=== PATIENT | female | born 1985 | race Caucasian/White ===

== ENCOUNTER 2017-07-30 20:58 | Emergency (ER) | payer BC ==
[2017-07-30 21:11] VITALS: BP 149/93
[2017-07-30] MEDS ORDERED: Pantoprazole 40 MG Tab.CR PO ONE (21:52)
--- NOTE | 2017-07-30 22:00 | EDM.PDOC ---
ED HPI GENERAL MEDICAL PROBLEM - General Chief Complaint: General Stated Complaint: BLOODY STOOLS RETAINING FLUID Time Seen by Provider: 07/30/17 21:32 Source of Information: Reports: Patient History Limitations: Reports: No Limitations - History of Present Illness INITIAL COMMENTS - FREE TEXT/NARRATIVE: Patient is a 32-year-old female presents ED with multiple complaints. The first being patient has gained approximately 15 pounds over the past 3 weeks. She states she quit smoking March 2017. For the past 3 weeks patient hasn't been increasing tired with decrease in appetite with bearing a best friend earlier the June and also having a friend coming to her with concerns of being alcoholic. Patient suffers from depression and was started on Effexor recently since he will be treated was not working. Patient lacks motivation to do anything that she previously enjoyed. Most hours of the day she is sleeping. She states previous thyroid tests have been negative although there is a family history of hypothyroidism. Patient admits to being depressed. In addition she's also been experiencing episodes of blood within her stools and wiping since March. She has a history of GI bleeds requiring EGD and colonoscopy. Has a recent she started on meloxicam and has been experiencing worsening acid reflux. She's had intermittent episodes of dark tarry stools. States today the blood was felipe red present within the water and also with wiping. She has no history of hemorrhoids or pain to her rectum. There's been no history of ingestion of battery questionable food or recent out of country travel. She also states she has not urinating as frequently as she would expect with the amount of fluids she is consuming. States she feels as if she is retaining fluids. She does not have the urge to urinate. There is a family hx of kidney disease. lower back Pain Score (Numeric/FACES): 4 - Related Data Allergies Allergy/AdvReac Type Severity Reaction Status Date / Time amoxicillin [Amoxicillin] Allergy Rash Verified 07/30/17 21:11 ciprofloxacin [From Cipro] Allergy Anaphylactic Verified 07/30/17 21:11 Shock ciprofloxacin HCl Allergy Anaphylactic Verified 07/30/17 21:11 [From Cipro] Shock doxycycline Allergy Anaphylactic Verified 07/30/17 21:11 Shock fentanyl Allergy Itching Verified 07/30/17 21:11 Penicillins Allergy Rash Verified 07/30/17 21:11 shellfish derived Allergy Anaphylactic Verified 07/30/17 21:11 Shock Sulfa (Sulfonamide Allergy Anaphylactic Verified 07/30/17 21:11 Antibiotics) Shock aripiprazole [From Abilify] AdvReac Change Verified 07/30/17 21:11 Mental Status Home Meds: Home Meds Acyclovir [Zovirax] 200 mg PO ASDIRECTED 04/27/16 [History] Venlafaxine [Effexor XR] 150 mg PO DAILY 04/27/16 [History] ALPRAZolam [Alprazolam] 1 tab PO ASDIRECTED PRN 07/30/17 [History] Albuterol Sulfate [Proair Hfa] 8.5 gm IH ASDIRECTED PRN 07/30/17 [History] Meloxicam 15 mg PO ASDIRECTED PRN 07/30/17 [History] buPROPion [Wellbutrin] 75 mg PO DAILY 07/30/17 [History] Past Medical History HEENT History: Reports: Allergic Rhinitis Cardiovascular History: Reports: Other (See Below) Other Cardiovascular History: retaining fluid Respiratory History: Reports: Asthma Gastrointestinal History: Reports: Cholelithiasis, GERD, Hiatal Hernia, PUD Other Gastrointestinal History: states hx of GI bleeding Other Genitourinary History: kidney stones SEWER History: Reports: Endometriosis Other OB/BYN History: pelvic pain, bilateral mastodynia, breast lump Musculoskeletal History: Reports: Other (See Below) Other Musculoskeletal History: generalized pain Neurological History: Reports: Migraines Psychiatric History: Reports: Anxiety, Depression Endocrine/Metabolic History: Reports: Obesity/BMI 30+ Immunologic History: - Past Surgical History GI Surgical History: Reports: Cholecystectomy, Other (See Below) Female Surgical History: Reports: Section, Hysterectomy, Salpingo- Oophorectomy Social & Family History - Family History Family Medical History: Noncontributory Cardiac: Reports: Heart Failure : Reports: Renal Disease/Insufficiency, Other (See Below) Other Family History: grandmother with kidney failure Oncologic: Reports: Thyroid Other Oncologic Family History: first cousin - Tobacco Use Smoking Status *Q: Former Smoker Years of Tobacco use: 6 Packs/Tins Daily: 1 Used Tobacco, but Quit: Yes Month Tobacco Last Used: 03/29/2017 Second Hand Smoke Exposure: Yes - Caffeine Use Caffeine Use: Reports: None - Alcohol Use Days Per Week of Alcohol Use: 0 Number of Drinks Per Day: 0 Total Drinks Per Week: 0 - Recreational Drug Use Recreational Drug Use: No - Living Situation & Occupation Occupation: Employed ED ROS GENERAL - Review of Systems Review Of Systems: See Below Constitutional: Reports: Malaise, Decreased Appetite. Denies: Fever, Chills HEENT: Reports: No Symptoms Respiratory: Reports: No Symptoms Cardiovascular: Reports: No Symptoms GI/Abdominal: Reports: Abdominal Pain, Bloody Stool, Decreased Appetite, Melena. Denies: Diarrhea, Nausea, Vomiting : Reports: Urinary Retention. Denies: Discharge, Dysuria, Flank Pain, Frequency, Hematuria, Incontinence, Pain, Urgency Musculoskeletal: Reports: No Symptoms Neurological: Reports: No Symptoms Psychiatric: Reports: Depression. Denies: Hallucinations, Homicidal Ideation, Suicidal Ideation ED EXAM, GENERAL - Physical Exam Exam: See Below Exam Limited By: No Limitations General Appearance: Alert, WD/WN, No Apparent Distress Ears: Hearing Grossly Normal Nose: Normal Inspection Throat/Mouth: Normal Voice, No Airway Compromise Neck: Normal Inspection, Supple Respiratory/Chest: No Respiratory Distress, Lungs Clear, Normal Breath Sounds, No Accessory Muscle Use Cardiovascular: Normal Peripheral Pulses, Regular Rate, Rhythm, No Murmur GI/Abdominal: Normal Bowel Sounds, Soft, No Organomegaly, No Distention, Tender (mild tenderness to the suprapubic region ) Rectal (Female) Exam: Deferred Back Exam: Normal Inspection Neurological: Alert, Oriented, CN II-XII Intact, Normal Cognition, No Motor/ Sensory Deficits Psychiatric: Normal Affect, Normal Mood, Other (patient does not appear to be depressed. ) Skin Exam: Warm, Dry, Intact, Normal Color, No Rash Course - Vital Signs Last Recorded V/S: Last Vital Signs Temp 97.8 F 07/30/17 21:06 Pulse 87 07/30/17 21:06 Resp 18 07/30/17 21:06 BP 149/93 H 07/30/17 21:06 Pulse Ox 99 07/30/17 21:06 - Orders/Labs/Meds Labs: Laboratory Tests 07/30/17 07/30/17 07/30/17 Range/Units 22:03 22:03 22:18 WBC 7.14 (3.98-10.04) K/mm3 RBC 4.07 (3.98-5.22) M/mm3 Hgb 12.1 (11.2-15.7) gm/L Hct 37.7 (34.1-44.9) % MCV 92.6 (79.4-94.8) fl MCH 29.7 (25.6-32.2) pg MCHC 32.1 L (32.2-35.5) g/dl RDW Std Deviation 41.9 (36.4-46.3) fL Plt Count 317 (182-369) K/mm3 MPV 9.5 (9.4-12.3) fl Neut % (Auto) 49.3 (34.0-71.1) % Lymph % (Auto) 40.2 (19.3-51.7) % [place] % (Auto) 7.6 (4.7-12.5) % Eos % (Auto) 2.4 (0.7-5.8) Baso % (Auto) 0.4 (0.1-1.2) % Neut # (Auto) 3.52 (1.56-6.13) K/mm3 Lymph # (Auto) 2.87 (1.18-3.74) K/mm3 [place] # (Auto) 0.54 H (0.24-0.36) K/mm3 Eos # (Auto) 0.17 (0.04-0.36) K/mm3 Baso # (Auto) 0.03 (0.01-0.08) K/mm3 Sodium 141 (136-145) mEq/L Potassium 3.7 (3.5-5.1) mEq/L Chloride 105 (98-107) mEq/L Carbon Dioxide 29 (21-32) mEq/L Anion Gap 10.7 (5-15) BUN 13 (7-18) mg/dL Creatinine 0.8 (0.55-1.02) mg/dL Est Cr Clr Drug Dosing 98.18 mL/min Estimated GFR (MDRD) > 60 (>60) mL/min BUN/Creatinine Ratio 16.3 (14-18) Glucose 89 (74-106) mg/dL Calcium 9.0 (8.5-10.1) mg/dL Total Bilirubin 0.2 (0.2-1.0) mg/dL AST 21 (15-37) U/L ALT 36 (14-59) U/L Alkaline Phosphatase 48 (46-116) U/L Total Protein 7.5 (6.4-8.2) g/dl Albumin 3.5 (3.4-5.0) g/dl Globulin 4.0 gm/dL Albumin/Globulin Ratio 0.9 L (1-2) Lipase 140 (73-393) U/L TSH 3rd Generation 1.283 (0.358-3.74) uIU/mL Urine Color Yellow (Yellow) Urine Appearance Clear (Clear) Urine pH 6.0 (5.0-8.0) Ur Specific [place] 1.025 (1.005-1.030) Urine Protein Negative (Negative) Urine Glucose (UA) Negative (Negative) Urine Ketones Negative (Negative) Urine Occult Blood 3+ H (Negative) Urine Nitrite Negative (Negative) Urine Bilirubin Negative (Negative) Urine Urobilinogen 0.2 (0.2-1.0) Ur Leukocyte Esterase Negative (Negative) Urine RBC 30-40 H (0-5) /hpf Urine WBC 0-5 (0-5) /hpf Ur Epithelial Cells 0-5 (0-5) /hpf Urine Bacteria Few (FEW) /hpf Urine Mucus Few (FEW) /hpf Meds: Medications Discontinued Medications Generic Name Dose Route Start Last Admin Trade Name Freq PRN Reason Stop Dose Admin Pantoprazole Sodium 40 mg 07/31/17 21:52 Protonix PO 07/31/17 21:53 ONETIME ONE Pantoprazole Sodium 40 mg 07/30/17 21:52 07/30/17 22:17 Protonix PO 07/30/17 21:53 40 mg ONETIME ONE Administration - Re-Assessments/Exams Free Text/Narrative Re-Assessment/Exam: Ordered protonix 40mg PO. Initial labs ordered include: CBC, C14, Lipase, TSH, and UA. Labs reviewed CBC and chemistry panel were essentially normal. TSH 1.283. Lipase 1.40. UA positive for blood. Discussed results of the labs with patient. Will discharge patient home with instructions as documented. Departure - Departure Time of Disposition: 23:01 Disposition: Home, Self-Care 01 Condition: Good Clinical Impression: Bleeding per rectum Hematuria Qualifiers: Hematuria type: unspecified type Qualified Code(s): R31.9 - Hematuria, unspecified Depression Qualifiers: Depression Type: unspecified Qualified Code(s): F32.9 - Major depressive disorder, single episode, unspecified - Discharge Information Instructions: Gastrointestinal Bleeding, Hematuria, Adult Referrals: Deng Booker PA-C [Primary Care Provider] - [facility] [Outside] Apurva Kelley NP [Nurse Practitioner] - Zain Ambriz MD [Physician] - Forms: ED Department Discharge Additional Instructions: As discussed continue taking all home medications except for meloxicam as prescribed. Refrain from taking any nsaids with history of blood from rectum. Please see general surgeon for reevaluation. EGD and or colonscopy maybe required. Take protonix 40mg every a.m. until told not to by General Surgeon. IN addition blood was noted within the urine. Unclear significance at this point. Suggest following up with PCP to ensure this resolves and if not pursue further workup. Followup with PCP to discuss effectiveness of antidepressants. Cognitive behavior therapy may be of benefit thus seek evaluation at [facility] ,Dr. Ambriz, or Windy Kelley Return to the E.D. for any new or worsening symptoms.
[2017-07-31] MEDS ORDERED: Pantoprazole 40 MG Tab.CR PO ONE (21:52)
== END 2017-07-30 23:20 | disposition home or self-care (01) ==
LOC: JD.ED 20:58
DX: K62.5 Hemorrhage of anus and rectum (principal); F32.9 Major depressive disorder, single episode, unspecified; Z88.1 Allergy status to other antibiotic agents; Z88.2 Allergy status to sulfonamides; Z88.0 Allergy status to penicillin; Z91.013 Allergy to seafood; Z79.899 Other long term (current) drug therapy; Z87.891 Personal history of nicotine dependence
CPT/HCPCS: 36415; 51798; 80053; 81001; 83690; 84443; 85025; 99283; A9270

== ENCOUNTER 2019-05-17 13:13 | Emergency (ER) | payer BC ==
[2019-05-17 13:34] VITALS: BP 113/78; PULSE 100
[2019-05-17] MEDS ORDERED: Ondansetron 4 MG/2 ML SDV IVPUSH ONE (14:03)
[2019-05-17] MEDS ORDERED: HYDROmorphone 0.5 MG/0.5 ML Syringe IVPUSH ONE ×2 (14:03→15:37)
[2019-05-17] MEDS ORDERED: Sodium Chloride 0.9% 10 ML Syringe FLUSH PRN (14:03)
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
--- NOTE | 2019-05-17 15:36 | CT ---
CT facial bone Technique: Multiple axial sections through the facial bones were obtained. Comparison: No prior facial bone study. Findings: Mastoid sinuses and middle ear cavities are clear. No temporal bone fracture is appreciated. Paranasal sinuses show nothing acute. Right and left globes are symmetric. No facial bone fracture is seen. Impression: 1. Nothing acute is appreciated on CT study of the facial bones. Diagnostic code #1
--- NOTE | 2019-05-17 15:36 | CT ---
Head CT Technique: Multiple axial sections through the brain were obtained. Intravenous contrast was not utilized. Comparison: No prior intracranial imaging. Findings: Ventricles along with basal cisterns and sulci over the convexities are within normal limits for the patient's age. No abnormal parenchymal densities are seen. No evidence of intracranial hemorrhage. No midline shift or mass effect is seen. No acute calvarial abnormality is identified. Mastoid sinuses show nothing acute. Impression: 1. Nothing acute is appreciated on noncontrast head CT exam. Diagnostic code #1
== END 2019-05-17 16:31 | disposition home or self-care (01) ==
LOC: JD.ED 13:13
DX: S06.0X9A Concussion with loss of consciousness of unspecified duration, initial encounter (principal); H91.92 Unspecified hearing loss, left ear; J45.909 Unspecified asthma, uncomplicated; F41.9 Anxiety disorder, unspecified; F32.9 Major depressive disorder, single episode, unspecified; E66.9 Obesity, unspecified; Z68.23 Body mass index [BMI] 23.0-23.9, adult; Z88.0 Allergy status to penicillin; Z88.1 Allergy status to other antibiotic agents; Z88.2 Allergy status to sulfonamides; Z91.013 Allergy to seafood; Z88.5 Allergy status to narcotic agent; Z88.8 Allergy status to other drugs, medicaments and biological substances; Z79.899 Other long term (current) drug therapy; Y04.2XXA Assault by strike against or bumped into by another person, initial encounter; Y93.89 Activity, other specified
CPT/HCPCS: 70450; 70486; 96374; 96375; 96376; 99283; J1170; J2405; 99284

== ENCOUNTER 2020-01-08 23:08 | Emergency (ER) | payer BC ==
[2020-01-08] MEDS ORDERED: Ondansetron 4 MG/2 ML SDV IVPUSH ONE (23:42)
[2020-01-08] MEDS ORDERED: HYDROmorphone 1 MG/ML Syringe IVPUSH STA (23:42)
[2020-01-08] MEDS ORDERED: Sodium Chloride 0.9% 1,000 ML IV SCH (23:45)
--- NOTE | 2020-01-08 23:49 | EDM.PDOC ---
ED HPI GENERAL MEDICAL PROBLEM - General Chief Complaint: Abdominal Pain Stated Complaint: ABDOMINAL PAIN Time Seen by Provider: 01/08/20 23:20 Source of Information: Reports: Patient, Significant Other (Boyfriend) History Limitations: Reports: No Limitations - History of Present Illness INITIAL COMMENTS - FREE TEXT/NARRATIVE: Mrs. Fitzpatrick is a very pleasant 34-year-old woman with a past medical history significant for GERD and peptic ulcer disease, status post a laparoscopic cholecystectomy in 2016 and a gastric sleeve in 2018, who now presents to the ED stating that she developed left upper quadrant abdominal pain, sharp and constant in character, around 17:00 this evening. The pain radiates to her left mid-back. It is made worse if she takes a deep breath, and made to feel better if she presses on her abdomen, but worse if she removes the pressure. She had associated nausea, but no vomiting or constipation, or diarrhea. No recent fever. No prior similar symptoms. The patient states that she took some Tylenol, Tums, and Gas-X, without relief of her symptoms. She last ate around midnight. Here in the ED, she is found to be hemodynamically stable, afebrile, saturating 96% on room air. Other than her abdominal and back pain, the patient denies recent fever, chills , sore throat, ear pain, nasal or sinus congestion, cough, dyspnea, chest pain, palpitations, vomiting, constipation, diarrhea, urinary symptoms, recent weight gain or weight loss, recent bloody bowel movements or black bowel movements, recent joint aches, headaches, or rashes. The patient's PCP is CARLOS Bhardwaj. Her STENOCAPTIONER is Dr. Will Quinones. Treatments COMBAT SYSTEMS ENGINEER: Reports: Acetaminophen, Other (see below) Other Treatments COMBAT SYSTEMS ENGINEER: antacid Left Upper Abdominal Pain Score (Numeric/FACES): 6 - Related Data Allergies Allergy/AdvReac Type Severity Reaction Status Date / Time morphine Allergy Severe Headache Verified 01/08/20 23:22 amoxicillin [Amoxicillin] Allergy Rash Verified 05/17/19 13:31 ciprofloxacin [From Cipro] Allergy Anaphylactic Verified 05/17/19 13:31 Shock ciprofloxacin HCl Allergy Anaphylactic Verified 05/17/19 13:31 [From Cipro] Shock doxycycline Allergy Anaphylactic Verified 05/17/19 13:31 Shock fentanyl Allergy Itching Verified 05/17/19 13:31 Penicillins Allergy Rash Verified 05/17/19 13:31 shellfish derived Allergy Anaphylactic Verified 05/17/19 13:31 Shock Sulfa (Sulfonamide Allergy Anaphylactic Verified 05/17/19 13:31 Antibiotics) Shock aripiprazole [From Abilify] AdvReac Change Verified 05/17/19 13:31 Mental Status Home Meds: Home Meds Venlafaxine [Effexor XR] 75 mg PO DAILY 04/27/16 [History] ALPRAZolam [Alprazolam] 1 tab PO ASDIRECTED PRN 07/30/17 [History] Past Medical History HEENT History: Reports: Allergic Rhinitis Respiratory History: Reports: Asthma Gastrointestinal History: Reports: GERD, Hiatal Hernia, PUD STENOCAPTIONER History: Reports: Endometriosis (laparoscopy-confirmed) Psychiatric History: Reports: Anxiety, Depression - Past Surgical History GI Surgical History: Reports: Bariatric Procedure (Gastric sleeve 2017), Cholecystectomy (04/30/2016) Female Surgical History: Reports: Section (x 2), Hysterectomy ( complete) Social & Family History - Family History Family Medical History: Noncontributory Cardiac: Reports: Heart Failure : Reports: Renal Disease/Insufficiency, Other (See Below) Other Family History: grandmother with kidney failure Oncologic: Reports: Thyroid Other Oncologic Family History: first cousin - Tobacco Use Smoking Status *Q: Current Every Day Smoker Years of Tobacco use: 9 Packs/Tins Daily: 0.5 Packs/Tins Daily Comment: Down from 1 ppd - Caffeine Use Caffeine Use: Reports: Coffee, Energy Drinks, Soda, Tea - Alcohol Use Alcohol Use History: Yes Alcohol Use Frequency: Socially - Recreational Drug Use Recreational Drug Use: No - Living Situation & Occupation Living situation: Reports: (), with Significant Other ( Boyfriend), with Family (6 kids) 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) ED ROS GENERAL - Review of Systems Review Of Systems: Comprehensive ROS is negative, except as noted in HPI. ED EXAM, GI/ABD - Physical Exam Exam: See Below Exam Limited By: No Limitations General Appearance: Alert, WD/WN, Mild Distress (Appears uncomfortable) Eyes: Bilateral: Normal Appearance, EOMI Ears: Normal External Exam, Hearing Grossly Normal Nose: Normal Inspection Throat/Mouth: Normal Inspection, Normal Lips, Normal Voice, No Airway Compromise Head: Atraumatic, Normocephalic Neck: Normal Inspection, Full Range of Motion Respiratory/Chest: No Respiratory Distress, Lungs Clear, Normal Breath Sounds, No Accessory Muscle Use Cardiovascular: Normal Peripheral Pulses, Regular Rate, Rhythm, No Edema, No Gallop, No JVD, No Murmur, No Rub GI/Abdominal Exam: Normal Bowel Sounds, Soft, No Organomegaly, No Distention, No Abnormal Bruit, No Mass, Tender (Generalized, with the greatest tenderness in the left upper quadrant, but no area of non-tenderness) (Female) Exam: Deferred Rectal (Female) Exam: Deferred Back Exam: Normal Inspection, Full Range of Motion, CVA Tenderness (L). No: CVA Tenderness (R) Extremities: Normal Inspection, Normal Range of Motion, No Pedal Edema, Normal Capillary Refill Neurological: Alert, Oriented, Normal Cognition, No Motor/Sensory Deficits Psychiatric: Normal Affect Skin Exam: Warm, Dry, Intact, Normal Color, No Rash Course - Vital Signs Last Recorded V/S: Last Vital Signs Temp 36.1 C 01/08/20 23:17 Pulse 78 01/09/20 01:31 Resp 18 01/09/20 01:31 BP 112/87 01/09/20 01:31 Pulse Ox 98 01/09/20 01:31 - Orders/Labs/Meds Orders: Active Orders 24 hr Category Date Time Status Abdomen Pelvis w Cont [CT] Stat Exams 01/09/20 00:01 Taken Chest 2V [CR] Stat Exams 01/09/20 00:01 Taken Sodium Chloride 0.9% [Normal Saline] 1,000 ml Med 01/08/20 23:45 Active IV ASDIRECTED Sodium Chloride 0.9% [Saline Flush] Med 01/09/20 01:19 Active 10 ml FLUSH ONETIME PRN Medication Orders Sodium Chloride (Normal Saline) 1,000 mls @ 150 mls/hr IV ASDIRECTED GUNJAN Last Admin: 01/08/20 23:59 Dose: 150 mls/hr Sodium Chloride (Saline Flush) 10 ml FLUSH ONETIME PRN PRN Reason: KEEP VEIN OPEN Last Admin: 01/09/20 01:21 Dose: 10 ml Labs: Laboratory Tests 01/08/20 01/08/20 01/08/20 Range/Units 00:00 23:55 23:55 WBC 8.07 (3.98-10.04) K/mm3 RBC 3.83 L (3.98-5.22) M/mm3 Hgb 12.1 (11.2-15.7) gm/dl Hct 37.6 (34.1-44.9) % MCV 98.2 H (79.4-94.8) fl MCH 31.6 (25.6-32.2) pg MCHC 32.2 (32.2-35.5) g/dl RDW Std Deviation 42.5 (36.4-46.3) fL Plt Count 333 (182-369) K/mm3 MPV 9.6 (9.4-12.3) fl Neutrophils % (Manual) 54 (40-60) % Band Neutrophils % 0 (0-10) % Lymphocytes % (Manual) 42 H (20-40) % Atypical Lymphs % 0 % Monocytes % (Manual) 3 (2-10) % Eosinophils % (Manual) 1 (0.7-5.8) % Basophils % (Manual) 0 L (0.1-1.2) Platelet Estimate Adequate RBC Morph Comment Normal D-Dimer, Quantitative < 0.19 L (0.19-0.50) mg/L Sodium 145 (136-145) mEq/L Potassium 3.7 (3.5-5.1) mEq/L Chloride 108 H (98-107) mEq/L Carbon Dioxide 30 (21-32) mEq/L Anion Gap 10.7 (5-15) BUN 16 (7-18) mg/dL Creatinine 0.8 (0.55-1.02) mg/dL Est Cr Clr Drug Dosing TNP Estimated GFR (MDRD) > 60 (>60) mL/min BUN/Creatinine Ratio 20.0 H (14-18) Glucose 84 (74-106) mg/dL Calcium 8.9 (8.5-10.1) mg/dL Total Bilirubin 0.2 (0.2-1.0) mg/dL AST 18 (15-37) U/L ALT 27 (14-59) U/L Alkaline Phosphatase 44 L (46-116) U/L Total Protein 7.2 (6.4-8.2) g/dl Albumin 3.5 (3.4-5.0) g/dl Globulin 3.7 gm/dL Albumin/Globulin Ratio 1.0 (1-2) Lipase 211 (73-393) U/L Urine Color (Yellow) Urine Appearance (Clear) Urine pH (5.0-8.0) Ur Specific [place] (1.005-1.030) Urine Protein (Negative) Urine Glucose (UA) (Negative) Urine Ketones (Negative) Urine Occult Blood (Negative) Urine Nitrite (Negative) Urine Bilirubin (Negative) Urine Urobilinogen (0.2-1.0) Ur Leukocyte Esterase (Negative) Urine RBC (0-5) /hpf Urine WBC (0-5) /hpf Ur Epithelial Cells (0-5) /hpf Triple Phos Crystals (NONE) /hpf Amorphous Sediment (NOT SEEN) /hpf Urine Bacteria (FEW) /hpf Urine Mucus (FEW) /hpf 01/09/20 Range/Units 00:10 WBC (3.98-10.04) K/mm3 RBC (3.98-5.22) M/mm3 Hgb (11.2-15.7) gm/dl Hct (34.1-44.9) % MCV (79.4-94.8) fl MCH (25.6-32.2) pg MCHC (32.2-35.5) g/dl RDW Std Deviation (36.4-46.3) fL Plt Count (182-369) K/mm3 MPV (9.4-12.3) fl Neutrophils % (Manual) (40-60) % Band Neutrophils % (0-10) % Lymphocytes % (Manual) (20-40) % Atypical Lymphs % % Monocytes % (Manual) (2-10) % Eosinophils % (Manual) (0.7-5.8) % Basophils % (Manual) (0.1-1.2) Platelet Estimate RBC Morph Comment D-Dimer, Quantitative (0.19-0.50) mg/L Sodium (136-145) mEq/L Potassium (3.5-5.1) mEq/L Chloride (98-107) mEq/L Carbon Dioxide (21-32) mEq/L Anion Gap (5-15) BUN (7-18) mg/dL Creatinine (0.55-1.02) mg/dL Est Cr Clr Drug Dosing Estimated GFR (MDRD) (>60) mL/min BUN/Creatinine Ratio (14-18) Glucose (74-106) mg/dL Calcium (8.5-10.1) mg/dL Total Bilirubin (0.2-1.0) mg/dL AST (15-37) U/L ALT (14-59) U/L Alkaline Phosphatase (46-116) U/L Total Protein (6.4-8.2) g/dl Albumin (3.4-5.0) g/dl Globulin gm/dL Albumin/Globulin Ratio (1-2) Lipase (73-393) U/L Urine Color Yellow (Yellow) Urine Appearance Clear (Clear) Urine pH 7.0 (5.0-8.0) Ur Specific [place] 1.025 (1.005-1.030) Urine Protein Trace H (Negative) Urine Glucose (UA) Negative (Negative) Urine Ketones Trace H (Negative) Urine Occult Blood 1+ H (Negative) Urine Nitrite Negative (Negative) Urine Bilirubin 1+ H (Negative) Urine Urobilinogen 0.2 (0.2-1.0) Ur Leukocyte Esterase Negative (Negative) Urine RBC 5-10 H (0-5) /hpf Urine WBC 0-5 (0-5) /hpf Ur Epithelial Cells 0-5 (0-5) /hpf Triple Phos Crystals Rare H (NONE) /hpf Amorphous Sediment Few H (NOT SEEN) /hpf Urine Bacteria Few (FEW) /hpf Urine Mucus Moderate H (FEW) /hpf Meds: Medications Generic Name Dose Route Start Last Admin Trade Name Freq PRN Reason Stop Dose Admin Sodium Chloride 1,000 mls @ 150 mls/hr 01/08/20 23:45 01/08/20 23:59 Normal Saline IV 150 mls/hr ASDIRECTED GUNJAN Administration Sodium Chloride 10 ml 01/09/20 01:19 01/09/20 01:21 Saline Flush FLUSH 10 ml ONETIME PRN Administration KEEP VEIN OPEN Discontinued Medications Generic Name Dose Route Start Last Admin Trade Name Freq PRN Reason Stop Dose Admin Diatrizoate Meglum/Diatrizoate Sod 90 ml 01/09/20 01:19 01/09/20 01:20 Gastrografin 37% PO 01/09/20 01:20 90 ml ONETIME ONE Administration Hydromorphone HCl 0.5 mg 01/08/20 23:42 01/08/20 23:59 Dilaudid IVPUSH 01/08/20 23:43 0.5 mg ONETIME STA Administration Hydromorphone HCl 0.5 mg 01/09/20 00:28 01/09/20 00:33 Dilaudid IVPUSH 01/09/20 00:29 0.5 mg ONETIME ONE Administration Hydromorphone HCl 0.5 mg 01/09/20 01:38 01/09/20 01:49 Dilaudid IVPUSH 01/09/20 01:39 0.5 mg ONETIME ONE Administration Iopamidol 100 ml 01/09/20 01:19 01/09/20 01:21 Isovue-300 (61%) IVPUSH 01/09/20 01:20 100 ml ONETIME ONE Administration Ondansetron HCl 4 mg 01/08/20 23:42 01/08/20 23:59 Zofran IVPUSH 01/08/20 23:43 4 mg ONETIME ONE Administration - Re-Assessments/Exams Free Text/Narrative Re-Assessment/Exam: 01/08/20 23:44 As above, the patient developed left upper quadrant abdominal pain earlier tonight, along with some nausea, and on examination, she has active bowel sounds , but generalized tenderness and left CVA tenderness. Her symptoms could be due to an intra-abdominal process, or a left ureterolith. Far less likely would be pyelonephritis, since the patient does not have a fever or any urinary symptoms. I have ordered a work-up that includes blood work, a urinalysis, a chest x-ray, and a CT scan of her abdomen and pelvis with oral and IV contrast. In the meantime, the patient will be given IV Dilaudid, IV Zofran, and IV fluid. 01/09/20 01:17 Two-view chest radiograph appears to be grossly normal. The cardiac silhouette is within normal limits. No pulmonary vascular congestion. No pleural effusions. No focal infiltrate. No pneumothorax. Formal read per the Radiologist pending. The patient's CBC is unremarkable. Her CMP is unremarkable. Her lipase level is within normal limits at 211. Her D-dimer is undetectably low. Her urinalysis is remarkable for 1+ occult blood with 5-10 RBCs, leukocyte Estrace negative with 0-5 WBCs, nitrate negative with few bacteria, and 0-5 squamous epithelial cells. 01/09/20 02:05 CT of the abdomen and pelvis with oral and IV contrast as read by [facility] as "No acute abdominal or pelvic findings." The body of the report does not mention moderate colonic fecal content throughout the large bowel. 01/09/20 02:10 Chest results discussed with the patient and her boyfriend. As above, jonathan' s work-up is unremarkable, and does not explain the cause of her symptoms. I reassured the patient that nothing serious appears to be happening. I recommended that we discharge her home, and that if her symptoms persist, that she follow-up with her PCP for further evaluation. She agreed. Departure - Departure Time of Disposition: 02:11 Disposition: Home, Self-Care 01 Condition: Good Clinical Impression: Abdominal pain of unknown etiology - Discharge Information *PRESCRIPTION DRUG MONITORING PROGRAM REVIEWED*: Not Applicable *COPY OF PRESCRIPTION DRUG MONITORING REPORT IN PATIENT SRAVAN: Not Applicable Referrals: Deng Booker PA-C [Primary Care Provider] - Forms: ED Department Discharge Additional Instructions: You were seen in the emergency room for upper left abdominal pain that radiated through to your back, with associated nausea. Work-up in the ER included blood work, a urinalysis, a chest x-ray, and a CT scan of your abdomen and pelvis with oral and IV contrast. Your entire work-up was unremarkable, and does not explain the cause of your symptoms. You do not have a urinary tract infection. You do not have a blood clot in your lungs. You do not have pneumonia. No abnormalities were found on your CT scan. We recommend that you stay adequately hydrated and eat a bland diet for the next couple of days. You may take Tylenol for abdominal discomfort, but we recommend you avoid ibuprofen, presently. If your symptoms persist, we recommend that you follow-up with your PCP, CARLOS Bhardwaj, for further evaluation. If any other problems, please do not hesitate to return to the ER. Sepsis Event Note (ED) - Evaluation Sepsis Screening Result: No Definite Risk - Focused Exam Vital Signs: Vital Signs Temp Pulse Resp BP BP Pulse Ox 01/09/20 01:31 78 18 112/87 98 01/09/20 00:37 62 18 122/58 L 98 01/08/20 23:17 36.1 C 83 18 117/67 96 - My Orders Last 24 Hours: My Active Orders 01/08/20 23:45 Sodium Chloride 0.9% [Normal Saline] 1,000 ml IV ASDIRECTED 01/09/20 00:01 Abdomen Pelvis w Cont [CT] Stat Chest 2V [CR] Stat 01/09/20 01:19 Sodium Chloride 0.9% [Saline Flush] 10 ml FLUSH ONETIME PRN - Assessment/Plan Last 24 Hours: My Active Orders 01/08/20 23:45 Sodium Chloride 0.9% [Normal Saline] 1,000 ml IV ASDIRECTED 01/09/20 00:01 Abdomen Pelvis w Cont [CT] Stat Chest 2V [CR] Stat 01/09/20 01:19 Sodium Chloride 0.9% [Saline Flush] 10 ml FLUSH ONETIME PRN
[2020-01-09] MEDS ORDERED: HYDROmorphone 0.5 MG/0.5 ML Syringe IVPUSH ONE ×2 (00:28→01:38)
[2020-01-09] MEDS ORDERED: Iopamidol 612 MG/ML 100 ML Bottle IVPUSH ONE (01:19)
[2020-01-09] MEDS ORDERED: Sodium Chloride 0.9% 10 ML Syringe FLUSH PRN (01:19)
[2020-01-09] MEDS ORDERED: Diatrizoate Meglumine/Diatrizoate Sodium 37% 120 ML Bottle PO ONE (01:19)
[2020-01-09 01:32] VITALS: BP 112/87; PULSE 78
--- NOTE | 2020-01-09 08:31 | CT ---
CT abdomen and pelvis Technique: Multiple axial sections were obtained from above the dome of the diaphragm inferiorly through the pubic symphysis. Intravenous and oral contrast has been given. Delayed images were obtained through the bladder. Comparison: Prior CT abdomen and pelvis study of 05/03/19. Findings: Visualized lung bases show nothing acute. Small hiatal hernia is seen. Gastroesophageal reflux of contrast is noted. Mild intrahepatic biliary duct dilatation is seen. This most likely relates to prior cholecystectomy. Liver appears somewhat enlarged and shows a poorly defined vascular outline raising the possibility of a nonspecific diffuse liver disease. Please correlate with liver function tests with hepatitis also within the differential. No focal parenchymal abnormality is otherwise seen. Spleen appears normal. Adrenal glands show no nodule. Kidneys show symmetric contrast enhancement without hydronephrosis or mass. Pancreas is within normal limits. Aorta shows no aneurysm. No retroperitoneal adenopathy or mesenteric abnormalities are seen. No pelvic mass or adenopathy is seen. No free fluid or inflammatory change is appreciated. Appendix not visualized with certainty. Slight increased stool is noted throughout the colon. Delayed images shows contrast within the bladder. Bone window settings were reviewed which shows no acute osseous finding. Impression: 1. Liver is somewhat enlarged with possible diffuse infiltrative liver disease. Please correlate if patient has abnormal LFTs. Viral hepatitis is also possible. 2. Mild increased stool throughout the colon. 3. No additional abnormality is seen. Diagnostic code #3 This report was dictated in [facility] Mostly with preliminary report from [facility] (additional liver finding as noted above), finalized on default value [employer] Daylight Time, grade 2
--- NOTE | 2020-01-09 08:44 | CR ---
Chest: PA and lateral views of the chest were obtained. Comparison: Prior chest x-ray of 04/20/60. Heart size and mediastinum are normal. Lungs are clear with no acute parenchymal change. Surgical clips are seen within the upper right abdomen from prior cholecystectomy. Impression: 1. Nothing acute is seen on 2 view chest x-ray. Diagnostic code #1 This report was dictated in MDT
== END 2020-01-09 02:20 | disposition home or self-care (01) ==
LOC: JD.ED 23:08
DX: R10.12 Left upper quadrant pain (principal); F41.9 Anxiety disorder, unspecified; F32.9 Major depressive disorder, single episode, unspecified; F17.210 Nicotine dependence, cigarettes, uncomplicated; Z88.5 Allergy status to narcotic agent; Z79.899 Other long term (current) drug therapy; Z88.1 Allergy status to other antibiotic agents; Z88.0 Allergy status to penicillin; Z91.013 Allergy to seafood; Z88.2 Allergy status to sulfonamides; Z88.8 Allergy status to other drugs, medicaments and biological substances
CPT/HCPCS: 36415; 71046; 74177; 80053; 81001; 83690; 85007; 85027; 85379; 96374; 96375; 96376; 99284; J1170; J2405; J7030; Q9963; Q9967

== ENCOUNTER 2020-12-29 00:42 | Emergency (ER) | payer BC ==
[2020-12-29 00:58] VITALS: BP 119/67; PULSE 104
[2020-12-29] MEDS ORDERED: Ondansetron 4 MG/2 ML SDV IVPUSH ONE (02:00)
[2020-12-29] MEDS ORDERED: HYDROmorphone 0.5 MG/0.5 ML Syringe IVPUSH ONE (02:00)
--- NOTE | 2020-12-29 02:02 | EDM.PDOC ---
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 Pain came on quickly and was referred up into the left flank and lower left chest. Pain remains constant with a colicky component. Associated nausea without vomiting. 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 She is also had a gastric bypass. She reports bowel function is usually once weekly since she does not eat much. Has not had major problems with constipation. Onset: Today, Sudden Onset Date: 12/29/20 Onset Time: 00:15 Duration: Minutes:, Colic (Colicky pain), Constant Location: Reports: Abdomen (Lower quadrant the abdomen rating up into the left flank) Quality: Reports: Ache, Sharp, Stabbing Severity: Moderate (Strong colicky component to the pain.) Improves with: Reports: Other (Pain has eased up a bit compared to initial onset.) Worsens with: Reports: None Context: Denies: Activity, Exercise, Lifting, Sick Contact, Trauma, Other Associated Symptoms: Denies: No Other Symptoms, Confusion, Chest Pain, Cough, cough w sputum, Diaphoresis, Fever/Chills, Headaches, Loss of Appetite, Malaise, Nausea/Vomiting, Rash, Seizure, Shortness of Breath, Syncope, Weakness Treatments PUBLIC WORKS DIRECTOR: Reports: Other (see below) Left Lower Anterior Pelvic Pain Score (Numeric/FACES): 8 - Related Data Allergies Allergy/AdvReac Type Severity Reaction Status Date / Time morphine Allergy Severe Headache Verified 12/29/20 00:50 amoxicillin [Amoxicillin] Allergy Rash Verified 12/29/20 00:50 ciprofloxacin [From Cipro] Allergy Anaphylactic Verified 12/29/20 00:50 Shock ciprofloxacin HCl Allergy Anaphylactic Verified 12/29/20 00:50 [From Cipro] Shock doxycycline Allergy Anaphylactic Verified 12/29/20 00:50 Shock fentanyl Allergy Itching Verified 12/29/20 00:50 Penicillins Allergy Rash Verified 12/29/20 00:50 shellfish derived Allergy Anaphylactic Verified 12/29/20 00:50 Shock Sulfa (Sulfonamide Allergy Anaphylactic Verified 12/29/20 00:50 Antibiotics) Shock aripiprazole [From Abilify] AdvReac Change Verified 12/29/20 00:50 Mental Status Home Meds: Home Meds Venlafaxine [Effexor XR] 75 mg PO DAILY 04/27/16 [History] predniSONE [Prednisone] 20 mg PO ASDIRECTED #15 tablet 12/29/20 [Rx] Past Medical History HEENT History: Reports: Allergic Rhinitis Cardiovascular History: Reports: Other (See Below) Other Cardiovascular History: retaining fluid Respiratory History: Reports: Asthma Gastrointestinal History: Reports: GERD, Hiatal Hernia, PUD Other Gastrointestinal History: states hx of GI bleeding Other Genitourinary History: kidney stones 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 She is on venlafaxine to help with hot flashes. Immunologic History: - Past Surgical History GI Surgical History: Reports: Bariatric Procedure, Cholecystectomy Female Surgical History: Reports: Section, Hysterectomy Social & Family History - Family History Family Medical History: No Pertinent Family History Cardiac: Reports: Heart Failure : Reports: Renal Disease/Insufficiency, Other (See Below) Other Family History: grandmother with kidney failure Oncologic: Reports: Thyroid Other Oncologic Family History: first cousin - Tobacco Use Tobacco Use Status *Q: Never Tobacco User Second Hand Smoke Exposure: No - Caffeine Use Caffeine Use: Reports: Coffee, Energy Drinks - Recreational Drug Use Recreational Drug Use: No - Living Situation & Occupation Living situation: Reports: (), with Significant Other (Boyfriend), with Family (6 kids) 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 Associated with the development of acute left lower quadrant abdominal pain tonight.). Denies: Vomiting : Reports: No Symptoms Musculoskeletal: Reports: No Symptoms Skin: Reports: No Symptoms Neurological: Reports: No Symptoms Psychiatric: Reports: No Symptoms Hematologic/Lymphatic: Reports: No Symptoms Immunologic: Reports: No Symptoms ED EXAM, RENAL/ - Physical Exam Exam: See Below Exam Limited By: No Limitations General Appearance: Alert, WD/WN, Mild Distress, Other (Temperature 36.7. Heart rate 104 and sinus. Respiratory of 18 with O2 sats of 97% on room air. BP 119/67.) Eye Exam: Bilateral Eye: Normal Inspection (No scleral icterus or blepharal pallor.), PERRL Neck: Normal Inspection, Supple, Non-Tender, Full Range of Motion Respiratory/Chest: No Respiratory Distress, Lungs Clear, Normal Breath Sounds, No Accessory Muscle Use Cardiovascular: Normal Peripheral Pulses, Regular Rate, Rhythm, No Edema, No Gallop, No Murmur, No Rub GI/Abdominal: Normal Bowel Sounds, Soft, No Organomegaly, Tender (Tender left upper quadrant of the abdomen.), Other. No: Guarding, Rigid, Rebound Back Exam: CVA Tenderness (L), CVA Tenderness (R) (Mild/moderate) Extremities: Limited Range of Motion (Left shoulder. Painful abduction and forward flexion. Exam suggests rotator cuff tendinitis. Subacromial bursitis), Other (Examination of the left shoulder due to chronic aching pain for 6 weeks reveals evidence of bicipital tendinitis in the long head of the biceps tendon. Evidence of mild deltoid tendinitis at its insertion into the proximal humerus. Evidence of mild supraspinatus tendinitis. ) Neurological: Alert, Oriented, CN II-XII Intact, Normal Cognition Psychiatric: Normal Affect, Normal Mood Skin Exam: Warm, Dry, Intact, Normal Color, No Rash Course - Vital Signs Last Recorded V/S: Last Vital Signs Temp 36.7 C 12/29/20 00:52 Pulse 104 H 12/29/20 00:52 Resp 18 12/29/20 00:52 BP 119/67 12/29/20 00:52 Pulse Ox 97 12/29/20 00:52 - Orders/Labs/Meds Orders: Active Orders 24 hr Category Date Time Status Abdomen Pelvis wo Cont [CT] Stat Exams 12/29/20 02:01 Taken UA RFX AQUILINO AND CULT IF INDIC [URIN] Stat Lab 12/29/20 01:00 Ordered Ketorolac [Toradol] Med 12/29/20 02:15 Active 30 mg IVPUSH ONETIME Medication Orders Ketorolac Tromethamine (Ketorolac 30 Mg/Ml Sdv) 30 mg IVPUSH ONETIME GUNJAN Last Admin: 12/29/20 02:14 Dose: 30 mg Documented by: JEN Labs: Laboratory Tests 12/29/20 12/29/20 Range/Units 01:11 01:11 WBC 7.04 (3.98-10.04) K/mm3 RBC 3.72 L (3.98-5.22) M/mm3 Hgb 11.6 (11.2-15.7) gm/dl Hct 36.3 (34.1-44.9) % MCV 97.6 H (79.4-94.8) fl MCH 31.2 (25.6-32.2) pg MCHC 32.0 L (32.2-35.5) g/dl RDW Std Deviation 41.5 (36.4-46.3) fL Plt Count 331 (182-369) K/mm3 MPV 9.0 L (9.4-12.3) fl Neut % (Auto) 60.6 (34.0-71.1) % Lymph % (Auto) 30.1 (19.3-51.7) % Callahan % (Auto) 7.7 (4.7-12.5) % Eos % (Auto) 0.6 L (0.7-5.8) Baso % (Auto) 1.0 (0.1-1.2) % Neut # (Auto) 4.27 (1.56-6.13) K/mm3 Lymph # (Auto) 2.12 (1.18-3.74) K/mm3 Callahan # (Auto) 0.54 H (0.24-0.36) K/mm3 Eos # (Auto) 0.04 (0.04-0.36) K/mm3 Baso # (Auto) 0.07 (0.01-0.08) K/mm3 Sodium 140 (136-145) mEq/L Potassium 3.7 (3.5-5.1) mEq/L Chloride 103 (98-107) mEq/L Carbon Dioxide 28 (21-32) mEq/L Anion Gap 12.7 (5-15) BUN 20 H (7-18) mg/dL Creatinine 0.9 (0.55-1.02) mg/dL Est Cr Clr Drug Dosing 86.43 mL/min Estimated GFR (MDRD) > 60 (>60) mL/min BUN/Creatinine Ratio 22.2 H (14-18) Glucose 98 (70-99) mg/dL Calcium 8.8 (8.5-10.1) mg/dL Total Bilirubin 0.4 (0.2-1.0) mg/dL AST 69 H (15-37) U/L ALT 52 (14-59) U/L Alkaline Phosphatase 50 (46-116) U/L C-Reactive Protein <0.2 (<1.0) mg/dL Total Protein 7.7 (6.4-8.2) g/dl Albumin 3.9 (3.4-5.0) g/dl Globulin 3.8 gm/dL Albumin/Globulin Ratio 1.0 (1-2) Meds: Medications Generic Name Dose Route Start Last Admin Trade Name Riki PRN Reason Stop Dose Admin Ketorolac Tromethamine 30 mg 12/29/20 02:15 12/29/20 02:14 Ketorolac 30 Mg/Ml Sdv IVPUSH 30 mg ONETIME GUNJAN Administration Discontinued Medications Generic Name Dose Route Start Last Admin Trade Name Riki PRN Reason Stop Dose Admin Hydromorphone HCl 0.5 mg 12/29/20 02:00 12/29/20 02:15 Hydromorphone 0.5 Mg/0.5 Ml Syringe IVPUSH 12/29/20 02:01 0.5 mg ONETIME ONE Administration Magnesium Citrate 240 ml 12/29/20 03:03 Magnesium Citrate Solution 296 Ml Bottle PO 12/29/20 03:04 ONETIME ONE Ondansetron HCl 4 mg 12/29/20 02:00 12/29/20 02:12 Ondansetron 4 Mg/2 Ml Sdv IVPUSH 12/29/20 02:01 4 mg ONETIME ONE Administration - Radiology Interpretation Free Text/Narrative:: 35-year-old female presents to the ED after developing acute onset of severe left lower quadrant abdominal pain that radiated up into the left flank and left lower chest. Pain started approximately 00 15 hours while at work. Associated development of nausea without vomiting. Pain is better at the time of my exam than when it started. She reports a strong colicky component to the pain. Patient has no history of renal colic. She not appreciate any gross hematuria. Patient has had a cholecystectomy, gastric bypass surgery and total abdominal hysterectomy and BSO in the past. Examination reveals bowel sounds be present. Tenderness left upper quadrant of the abdomen tenderness left costovertebral angle. Afebrile with stable vital signs. Plan urinalysis. CT abdomen and pelvis with per renal protocol - Re-Assessments/Exams Free Text/Narrative Re-Assessment/Exam: 12/29/20 02:39 White count is 7.04 with 60% neutrophils. Hemoglobin 11.6 with hematocrit of 36.3. MCV is slightly elevated 97.6. Platelet count is normal at 331,000. Chemistry shows a sodium of 140 and a potassium of 3.7. Chloride is 103 with a bicarb of 28. Anion gap is 12.7. BUN is 20 with a creatinine of 0.9 and GFR greater than 60. Glucose is 98. Calcium is 8.8. Bilirubin is 0.4 AST minimally elevated at 69. ALT normal at 52. Alkaline phosphatase normal at 50. C-reactive protein is less than 0.2. Total protein is 7.7 with an albumin fraction of 3.9 12/29/20 02:39 CT of the abdomen and pelvis has been performed per renal p rotocol. No evidence of renal stone identified. Both kidneys are within normal limits with no stones within the renal parenchyma. Ureters are free of any obstructing stones. There are several phleboliths down in the pelvis. Liver appears normal. Evidence of previous cholecystectomy. Previous evidence of gastric bypass surgery. Absence of the uterus and ovaries. The colon reveals excessive amount of stool throughout the colon but particularly left upper quadrant and descending colon down to the rectum. There was no signs of appendicitis. This appears to be the cause of her current pain. Findings discussed with the patient. I will send her home with Citroma 8 ounces to be taken by mouth with 6 ounces of juice of choice. Suggest getting on MiraLAX powder 17 g or 1 scoop daily to prevent constipation. On my evaluation of the CT there is stool within the distal small bowel. This can create a bacterial overgrowth syndrome. Second problem was subacromial bursitis with diffuse tendinitis in the left shoulder. This involves the pectoralis minor insertion on the coracoid process. Long head of biceps tendon deltoid tendon and clinically the supraspinatus tendon. I am going to place her on prednisone 20 mg twice daily for 5 days and then once daily in the morning for another 5 days. She has an appointment with Yonathan Booker in 2 weeks time. If she has not improved on oral prednisone she may well benefit from subacromial bursal injection with Kenalog or Depo-Medrol. Departure - Departure Time of Disposition: 03:04 Disposition: Home, Self-Care 01 Condition: Fair Clinical Impression: Acute abdominal pain in left lower quadrant, Constipation by delayed colonic transit, Subacromial bursitis of left shoulder joint, Subacromial tendinitis of left shoulder, Tendinitis of left shoulder - Discharge Information *PRESCRIPTION DRUG MONITORING PROGRAM REVIEWED*: Not Applicable *COPY OF PRESCRIPTION DRUG MONITORING REPORT IN PATIENT SRAVAN: Not Applicable Prescriptions: predniSONE [Prednisone] 20 mg PO ASDIRECTED #15 tablet Instructions: Constipation, Adult, [id number] Referrals: PCP,None [Primary Care Provider] - Forms: ED Department Discharge Additional Instructions: Evaluation in the emergency room tonight in regards to sudden onset of severe left lower quadrant abdominal pain rating up into your left chest and back. Associated nausea without vomiting. History is highly suspicious for kidney stone. Lab work proved to be normal other than mildly increased mean corpuscular volume of the red cells suggesting mild B12 deficiency. Suggest purchasing vitamin B12 and taking 1 mg or [address] of the abdomen reveals evidence of increased stool throughout the left hemicolon down into the pelvis. No kidney stones were identified in either kidney and both ureters were normal with no obstructing stones. Evidence of previous gallbladder removal. Evidence of gastric bypass surgery. Liver appears normal. Pancreas appears normal. No abnormal lymph nodes identified. Suggest treatment with magnesium citrate 8 ounces by mouth mixed with 6 ounces of juice of choice taken by mouth once later this morning to provide bowel cleanse. I would suggest purchasing MiraLAX powder and taking 17 g or 1 scoop daily to prevent similar problem from reoccurring. Sepsis Event Note (ED) - Evaluation Sepsis Screening Result: No Definite Risk - Focused Exam Vital Signs: Vital Signs Temp Pulse Resp BP Pulse Ox 12/29/20 00:52 36.7 C 104 H 18 119/67 97 - My Orders Last 24 Hours: My Active Orders 12/29/20 01:00 UA RFX AQUILINO AND CULT IF INDIC [URIN] Stat 12/29/20 02:01 Abdomen Pelvis wo Cont [CT] Stat 12/29/20 02:15 Ketorolac [Toradol] 30 mg IVPUSH ONETIME - Assessment/Plan Last 24 Hours: My Active Orders 12/29/20 01:00 UA RFX AQUILINO AND CULT IF INDIC [URIN] Stat 12/29/20 02:01 Abdomen Pelvis wo Cont [CT] Stat 12/29/20 02:15 Ketorolac [Toradol] 30 mg IVPUSH ONETIME
[2020-12-29] MEDS ORDERED: Ketorolac 30 MG/ML SDV IVPUSH SCH (02:15)
[2020-12-29] MEDS ORDERED: Magnesium Citrate Solution 296 ML Bottle PO ONE (03:03)
--- NOTE | 2020-12-29 06:31 | CT ---
CT abdomen and pelvis Technique: Multiple axial sections were obtained from above the dome of the diaphragm inferiorly through the pubic symphysis. Intravenous and oral contrast was not utilized. Comparison: Prior CT abdomen and pelvis study of 01/09/20. Findings: Visualized lung bases are clear. Noncontrast appearance of the liver shows no focal parenchymal abnormality. Spleen size is normal. Prior stomach surgery is noted. Small hiatal hernia is present. Adrenal glands show no nodule. Surgical clips are noted from prior cholecystectomy. Pancreas shows no discrete abnormality. Kidneys show no abnormal calcifications. No hydronephrosis or ureteral calculi are seen. Abdominal aorta shows no aneurysm. No retroperitoneal adenopathy or mesenteric abnormalities are seen. Appendix is seen which is normal. No pelvic mass or adenopathy is appreciated. Prior hysterectomy is noted. Mild increased stool is noted throughout the colon. Bone window settings were reviewed which show no acute osseous abnormality. Impression: 1. Small hiatal hernia with prior gastric surgery. 2. Mild increased stool within the colon. 3. Nothing acute is appreciated. Diagnostic code #2 I agree with preliminary report from [facility], finalized on 12/29/20, 4:03 AM CDT, code 1
== END 2020-12-29 03:28 | disposition home or self-care (01) ==
LOC: JD.ED 00:42
DX: K59.01 Slow transit constipation (principal); M75.52 Bursitis of left shoulder; M77.8 Other enthesopathies, not elsewhere classified; J45.909 Unspecified asthma, uncomplicated; E66.9 Obesity, unspecified; Z68.21 Body mass index [BMI] 21.0-21.9, adult; Z88.5 Allergy status to narcotic agent; Z88.0 Allergy status to penicillin; Z88.1 Allergy status to other antibiotic agents; Z88.4 Allergy status to anesthetic agent; Z91.013 Allergy to seafood; Z88.2 Allergy status to sulfonamides; Z88.8 Allergy status to other drugs, medicaments and biological substances
CPT/HCPCS: 36415; 74176; 80053; 85025; 86140; 96374; 96375; 99284; A9270; J1170; J1885; J2405

== ENCOUNTER 2021-04-27 09:24 | Day surgery (SDC) | payer BC ==
[~2021-04-27 09:24] MED LIST: Albuterol 0.083% 2.5 MG/3 ML Neb Soln NEB ONE; EPINEPHrine 1 MG/ML 30 ML MDV SCH; Lactated Ringers 1,000 ML IV SCH; Lidocaine 1%/Sod Bicarbonate in NS 8.4% 1 ML Syringe IDERM PRN; Sodium Chloride 0.9% 10 ML Syringe FLUSH PRN
--- NOTE | 2021-04-27 11:04 | PCM.PREANE ---
Preanesthetic Assessment - Procedure Proposed Procedure: left shoulder video arthroscopy with slap repair - Anesthesia/Transfusion/Family Hx Anesthesia History: Prior Anesthesia Without Reaction Family History of Anesthesia Reaction: No Transfusion History: No Prior Transfusion(s) Intubation History: Unknown - Review of Systems General: No Symptoms Pulmonary: No Symptoms Cardiovascular: No Symptoms Gastrointestinal: No Symptoms Neurological: No Symptoms - Physical Assessment NPO Status Date: 04/26/21 NPO Status Time: 21:00 Vital Signs: 109/64 74 16 100% 97.7 Height: 5 ft 7 in Weight: 61.6 kg ASA Class: 2 Mental Status: Alert & Oriented x3 Airway Class: Mallampati = 1 Dentition: Reports: Normal Dentition Thyro-Mental Finger Breadths: 3 Mouth Opening Finger Breadths: 3 ROM/Head Extension: Full Lungs: Clear to Auscultation, Normal Respiratory Effort Cardiovascular: Regular Rate, Regular Rhythm - Allergies Allergies/Adverse Reactions: Allergies Allergy/AdvReac Type Severity Reaction Status Date / Time amoxicillin [Amoxicillin] Allergy Rash Verified 04/26/21 08:35 chlorhexidine Allergy Itching Verified 04/26/21 08:36 ciprofloxacin [From Cipro] Allergy Anaphylactic Verified 04/26/21 08:35 Shock ciprofloxacin HCl Allergy Anaphylactic Verified 04/26/21 08:35 [From Cipro] Shock doxycycline Allergy Anaphylactic Verified 04/26/21 08:35 Shock fentanyl Allergy Itching Verified 04/26/21 08:35 Penicillins Allergy Rash Verified 04/26/21 08:35 shellfish derived Allergy Anaphylactic Verified 04/26/21 08:35 Shock Sulfa (Sulfonamide Allergy Anaphylactic Verified 04/26/21 08:35 Antibiotics) Shock morphine AdvReac Mild Headache Verified 04/26/21 08:35 aripiprazole [From Abilify] AdvReac Change Verified 04/26/21 08:35 Mental Status duloxetine [From Cymbalta] AdvReac Change Verified 04/26/21 17:08 Mental Status - Blood Blood Available: No - Acknowledgements Anesthesia Type Planned: General Anesthesia Pt an Appropriate Candidate for the Planned Anesthesia: Yes Alternatives and Risks of Anesthesia Discussed w Pt/Guardian: Yes Pt/Guardian Understands and Agrees with Anesthesia Plan: Yes PreAnesthesia Questionnaire HEENT History: Reports: Allergic Rhinitis Other HEENT History: RUPTURED EAR DRUM Cardiovascular History: Reports: Other (See Below) Other Cardiovascular History: retaining fluid Respiratory History: Reports: Asthma (used to) Other Respiratory History: COUGH Gastrointestinal History: Reports: GERD, Hiatal Hernia, PUD Other Gastrointestinal History: states hx of GI bleeding Genitourinary History: Reports: Renal Calculus, Other (See Below) Other Genitourinary History: kidney stones 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 She is on venlafaxine to help with hot flashes. Hematologic History: Reports: Other (See Below) Other Hematologic History: bleeding disorder, decreased hemoglobin Immunologic History: Reports: None Oncologic (Cancer) History: Reports: None Dermatologic History: Reports: Other (See Below) Other Dermatologic History: acne, cold sores - Infectious Disease History Infectious Disease History: Reports: Novel Coronavirus - Past Surgical History Head Surgeries/Procedures: Reports: None ([id number]) Respiratory Surgical History: Reports: None GI Surgical History: Reports: Bariatric Procedure, Cholecystectomy Female Surgical History: Reports: Section, Hysterectomy Male Surgical History: Reports: None Endocrine Surgical History: Reports: None Neurological Surgical History: Reports: None Musculoskeletal Surgical History: Reports: None Oncologic Surgical History: Reports: None Dermatological Surgical History: Reports: None - SUBSTANCE USE Tobacco Use Status *Q: Current Every Day Tobacco User Tobacco Use Within Last Twelve Months: Vaping Second Hand Smoke Exposure: Yes Days Per Week of Alcohol Use: 0 Recreational Drug Use History: No - HOME MEDS Home Medications: Home Meds Omeprazole Magnesium [Prilosec Otc] 20 mg PO DAILY 04/25/21 [History] Venlafaxine [Venlafaxine HCl ER] 150 mg PO DAILY 04/25/21 [History] Cyclobenzaprine [Flexeril] 10 mg PO BID PRN #20 tab 04/27/21 [Rx] Hydrocodone/Acetaminophen [HYDROcodone-Acetaminophen 5-325 MG] 1 - 2 each PO Q6H PRN #30 tablet 04/27/21 [Rx] - CURRENT (IN HOUSE) MEDS Current Meds: Current Medications Lactated Ringer's (Ringers, Lactated) 1,000 mls @ 125 mls/hr IV ASDIRECTED GUNJAN Stop: 04/27/21 23:00 Lidocaine/Sodium Bicarbonate (Lidocaine 1%/Sod Bicarbonate In Ns 8.4% 1 Ml Syringe) 0.25 ml IDERM ONETIME PRN PRN Reason: Prior to IV Start Stop: 04/27/21 18:00 Sodium Chloride (Sodium Chloride 0.9% 10 Ml Syringe) 10 ml FLUSH ASDIRECTED PRN PRN Reason: Keep Vein Open Stop: 04/27/21 18:00 Discontinued Medications Albuterol (Albuterol 0.083% 2.5 Mg/3 Ml Neb Soln) 2.5 mg NEB ONETIME ONE Stop: 04/27/21 06:48 Epinephrine HCl (Epinephrine 1 Mg/Ml 30 Ml Mdv) 3 mg .XX ONETIME GUNJAN Stop: 04/27/21 10:00
[2021-04-27] MEDS ORDERED: fentaNYL 250 MCG/5 ML SDV ONE (11:26)
[2021-04-27] MEDS ORDERED: Midazolam 1 MG/ML 2 ML SDV ONE (11:26)
[2021-04-27] MEDS ORDERED: Dexamethasone 4 MG/ML 5 ML MDV ONE (11:26)
[2021-04-27] MEDS ORDERED: Rocuronium 50 MG/5 ML Vial ONE (11:26)
[2021-04-27] MEDS ORDERED: Propofol 200 MG/20 ML SDV ONE (11:26)
[2021-04-27] MEDS ORDERED: Ondansetron 4 MG/2 ML SDV ONE (11:26)
[2021-04-27] MEDS ORDERED: ceFAZolin 1 GM Vial ONE (11:32)
[2021-04-27] MEDS ORDERED: Ropivacaine 0.5% 5 MG/ML 30 ML SDV ONE (11:34)
[2021-04-27] MEDS ORDERED: EPINEPHrine 1 MG/ML SDV ONE (11:34)
--- NOTE | 2021-04-27 12:38 | PCM.PRNOTE ---
- Free Text/Narrative Note: Anesthesia Note: Left Interscalene Block Time Out: 1148 Start: 1148 Stop: 1215 Current Procedure: Left interscalene block under US guidance for postoperative pain control requested by Dr. Yost. Patient chart reviewed, risk/benefits discussed with patient, consent obtained. Patient positioned head up 30 degrees with head turned toward right side. Monitors/alarms on, oxygen placed via nasal cannula at 2 LPM. IV sedation administered: Versed 2mg IV, Fentanyl 100mcg IV given in preop prior to block placement. Left shoulder prepped with alcohol due to patient's allergy to ChloraPrep. Sterile drapes placed with aseptic technique noted. Under US guidance, left subclavian artery visualized along with the left brachial plexus. Plexus followed up to C6 cricoid level, and area localized with 0.5 ml of 1% lidocaine. 22gauge 2 inch stimiplex needle advanced under US with 0.6mV with stimulation of biceps noted. Good stimulation noted with decreased voltage and absent at 0.4mVs. 1ml of Normal Saline injected with loss of stimulation noted to confirm needle not placed intraneurally. Incremental dosing of 5mls with negative aspiration noted prior to each injection of 0.5% ropivacaine with 1:200,000 epinephrine. Total volume=20mls. Please refer to nurses noted for vital signs. Yuly Munoz PATIENT INTAKE REPRESENTATIVE
[2021-04-27] MEDS ORDERED: Succinylcholine/Sod PF 100 MG/5 ML SYRINGE IV ONE (13:16)
[2021-04-27] MEDS ORDERED: ePHEDrine 50 MG/ML SDV ONE (13:42)
[2021-04-27] MEDS ORDERED: Lactated Ringers 1,000 ML ONE (13:56)
[2021-04-27] MEDS ORDERED: Acetaminophen/HYDROcodone 325-5 MG Tab PO PRN (14:38)
[2021-04-27] MEDS ORDERED: Cyclobenzaprine 10 MG Tab PO PRN (14:38)
[2021-04-27] MEDS ORDERED: Ondansetron 4 MG/2 ML SDV IVPUSH PRN (14:40)
[2021-04-27] MEDS ORDERED: fentaNYL 100 MCG/2 ML SDV IVPUSH PRN (14:40)
--- NOTE | 2021-04-27 14:43 | PCM.POSTAN ---
POST ANESTHESIA ASSESSMENT - MENTAL STATUS Mental Status: Alert, Oriented - VITAL SIGNS Vital Signs: Last Vital Signs Temp 97.3 F 04/27/21 14:30 Pulse 12 L 04/27/21 14:30 Resp 12 04/27/21 14:30 BP 121/56 L 04/27/21 14:30 Pulse Ox 100 04/27/21 14:30 - RESPIRATORY Respiratory Status: Respiratory Rate WNL, Airway Patent, O2 Saturation Stable - CARDIOVASCULAR CV Status: Pulse Rate WNL, Blood Pressure Stable - GASTROINTESTINAL GI Status: No Symptoms - PAIN Pain Score: 7 (Patient appears comfortable but states that she is having pain. ) - POST OP HYDRATION Hydration Status: Adequate & Stable
[2021-04-27] MEDS: HYDROmorphone 0.5 MG/0.5 ML Syringe IVPUSH PRN ×2 (14:50→15:03)
[2021-04-27 16:00] VITALS: BP 99/59; PULSE 91
--- NOTE | 2021-05-09 17:21 | PCM.OPNOTE ---
- General Post-Op/Procedure Note Date of Surgery/Procedure: 04/27/21 Operative Procedure(s): left shoulder video arthroscopy with extensive debridement and arthroscopic biceps tenodesis Pre Op Diagnosis: left shoulder biciptal tendinitis with possible SLAP tear Post-Op Diagnosis: left shoulder biciptal tendinits with synovitis and bursitis Anesthesia Technique: General ET Tube, Regional Block Primary Surgeon: Camron Yost Anesthesia Provider: Yuly Munoz Bridge Welder: Carol Paz in mLs: 5 Complications: None Condition: Good
--- NOTE | 2021-05-10 07:21 | OR ---
DATE OF OPERATION: 04/27/2021 SURGEON: Camron Yost MD OPERATION PERFORMED: Left shoulder video arthroscopy with extensive debridement and arthroscopic biceps tenodesis. PREOPERATIVE DIAGNOSIS: Left shoulder bicipital tendinitis with possible superior labrum anterior and posterior tear. POSTOPERATIVE DIAGNOSIS: Left shoulder bicipital tendinitis with synovitis and bursitis. ANESTHESIA: General endotracheal intubation with regional interscalene block. ANESTHESIA PROVIDER: Case Sky. CREELER: Carol Paz PA-C. ESTIMATED BLOOD LOSS: Less than 5 mL. COMPLICATIONS: None. CONDITION: Stable. DESCRIPTION OF PROCEDURE: The patient was identified in the preoperative holding area. Proper site was marked and identified by the surgeon. The patient was taken back to the operative theater, where after adequate anesthesia, the patient was placed in a lazy right lateral decubitus position. Wedge was placed posteriorly. The patient was secured to the table. Left upper extremity was then sterilely prepped and draped in the usual sterile fashion. OR time-out was performed. The patient received 2 g IV Ancef. 10 pounds of traction was applied to the left upper extremity. At this time, standard posterior incision was made. Scope trocar was introduced to the glenohumeral joint. The patient was noted to have significant fraying near the attachment of the biceps, but no SLAP tear was visualized. Subscapularis tendon was intact. Rotator cuff tendons were intact with no signs of erythema. The patient was noted to have significant synovitis superiorly near the attachment of the biceps. Anterior portal was then created with use of an outside-in technique and it was decided that we do a biceps tenodesis at this time. Spinal needle was passed through the biceps and then the #2 FiberWire was placed through the biceps for an outside-in technique for subacromial biceps tenodesis in the rotator interval. Biceps was then cut at its attachment and a debridement of the synovitis as well as remaining small portion of the biceps was done at this time. Attention was turned to the subacromial space. The patient was noted to have significant bursitis and a bursectomy was performed, but there were no signs of impingement on the CA ligament with no fraying of the CA ligament. At this time, the sutures were found in the rotator interval and were tied arthroscopically and was found to have good biceps tenodesis. The sutures were then cut. Excess saline was drained from the shoulder. 3-0 nylon suture was used for closure of the portal incisions. The patient was placed in a sterile soft dressing and a pillow sling and was sent to the PACU in stable condition. IONA /[id number]
== END 2021-04-27 16:52 | disposition home or self-care (01) ==
LOC: JD.SDS 09:24
PROVIDERS: ATTEND Orthopaedic Surgery
DX: M75.22 Bicipital tendinitis, left shoulder (principal); M65.812 Other synovitis and tenosynovitis, left shoulder; M75.52 Bursitis of left shoulder; S46.112A Strain of muscle, fascia and tendon of long head of biceps, left arm, initial encounter; J45.909 Unspecified asthma, uncomplicated; Z86.16 Personal history of COVID-19; K21.9 Gastro-esophageal reflux disease without esophagitis; I10 Essential (primary) hypertension; F17.210 Nicotine dependence, cigarettes, uncomplicated; G43.909 Migraine, unspecified, not intractable, without status migrainosus; Z88.8 Allergy status to other drugs, medicaments and biological substances; Z88.5 Allergy status to narcotic agent; Z88.0 Allergy status to penicillin; Z91.013 Allergy to seafood; Z79.899 Other long term (current) drug therapy; Z98.890 Other specified postprocedural states; Z98.84 Bariatric surgery status; Z90.49 Acquired absence of other specified parts of digestive tract
CPT/HCPCS: 29828; A9270; J0171; J0330; J0690; J1100; J1170; J2250; J2370; J2405; J2704; J2710; J2795; J3010; J7120; 01630; 64415; 76942

== ENCOUNTER 2021-05-27 23:43 | Emergency (ER) | payer SELFPAY ==
--- NOTE | 2021-05-28 00:36 | EDM.PDOC ---
ED HPI GENERAL MEDICAL PROBLEM - General Chief Complaint: Drug or Alcohol Abuse Stated Complaint: POSSIBLY DRUGGED Time Seen by Provider: 05/28/21 00:26 - History of Present Illness INITIAL COMMENTS - FREE TEXT/NARRATIVE: 35-year-old female presents the emergency room not feeling right. 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 She thought this was perhaps a little cloudy. After being out for a little while she did begin to not feel well. They decided to go to another bar because the one they were out was starting to get a little rowdy and she was lightheaded with was developing a headache and just did not feel well they made the decision to come in at that point to be evaluated. There is some concern about maybe something being slipped in her drink. Patient's thought maybe her pupils were not responding correctly. Neck Pain Score (Numeric/FACES): 2 - Related Data Allergies Allergy/AdvReac Type Severity Reaction Status Date / Time amoxicillin [Amoxicillin] Allergy Rash Verified 05/28/21 00:01 chlorhexidine Allergy Itching Verified 05/28/21 00:01 ciprofloxacin [From Cipro] Allergy Anaphylactic Verified 05/28/21 00:01 Shock ciprofloxacin HCl Allergy Anaphylactic Verified 05/28/21 00:01 [From Cipro] Shock doxycycline Allergy Anaphylactic Verified 05/28/21 00:01 Shock fentanyl Allergy Itching Verified 05/28/21 00:01 Penicillins Allergy Rash Verified 05/28/21 00:01 shellfish derived Allergy Anaphylactic Verified 05/28/21 00:01 Shock Sulfa (Sulfonamide Allergy Anaphylactic Verified 05/28/21 00:01 Antibiotics) Shock morphine AdvReac Mild Headache Verified 05/28/21 00:01 aripiprazole [From Abilify] AdvReac Change Verified 05/28/21 00:01 Mental Status duloxetine [From Cymbalta] AdvReac Change Verified 05/28/21 00:01 Mental Status Home Meds: Home Meds Omeprazole Magnesium [Prilosec Otc] 20 mg PO DAILY 04/25/21 [History] Venlafaxine [Venlafaxine HCl ER] 150 mg PO DAILY 04/25/21 [History] Cyclobenzaprine [Flexeril] 10 mg PO BID PRN #20 tab 04/27/21 [Rx] Hydrocodone/Acetaminophen [HYDROcodone-Acetaminophen 5-325 MG] 1 - 2 each PO Q6H PRN #30 tablet 04/27/21 [Rx] Potassium Chloride [Klor-Con 10] 10 meq PO BID #8 tab.er 05/28/21 [Rx] Past Medical History HEENT History: Reports: Allergic Rhinitis Other HEENT History: RUPTURED EAR DRUM Cardiovascular History: Reports: Other (See Below) Other Cardiovascular History: retaining fluid Respiratory History: Reports: Asthma Other Respiratory History: COUGH Gastrointestinal History: Reports: GERD, Hiatal Hernia, PUD Other Gastrointestinal History: states hx of GI bleeding Genitourinary History: Reports: Renal Calculus, Other (See Below) Other Genitourinary History: kidney stones MICA INSPECTOR History: Reports: Endometriosis Other MICA INSPECTOR History: pelvic pain, bilateral mastodynia, breast lump Musculoskeletal History: Reports: Other (See Below) Other Musculoskeletal History: generalized pain Neurological History: Reports: Migraines Psychiatric History: Reports: Anxiety, Depression Other Psychiatric History: daytime somnolence, fatigue, mood swings Endocrine/Metabolic History: Reports: Other (See Below) Other Endocrine/Metabolic History: 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 She is on venlafaxine to help with hot flashes. Hematologic History: Reports: Other (See Below) Other Hematologic History: bleeding disorder, decreased hemoglobin Immunologic History: Reports: None Oncologic (Cancer) History: Reports: Ovarian Dermatologic History: Reports: Other (See Below) Other Dermatologic History: acne, cold sores - Infectious Disease History Infectious Disease History: Reports: Novel Coronavirus - Past Surgical History Head Surgeries/Procedures: Reports: None Respiratory Surgical History: Reports: None GI Surgical History: Reports: Bariatric Procedure, Cholecystectomy Female Surgical History: Reports: Section, Hysterectomy Endocrine Surgical History: Reports: None Neurological Surgical History: Reports: None Musculoskeletal Surgical History: Reports: Shoulder Surgery Oncologic Surgical History: Reports: None Dermatological Surgical History: Reports: None Social & Family History - Family History Family Medical History: No Pertinent Family History Cardiac: Reports: Heart Failure : Reports: Renal Disease/Insufficiency, Other (See Below) Other Family History: grandmother with kidney failure Oncologic: Reports: Thyroid Other Oncologic Family History: first cousin - Tobacco Use Tobacco Use Status *Q: Current Every Day Tobacco User Years of Tobacco use: 3 Packs/Tins Daily: 1 - Caffeine Use Caffeine Use: Reports: Coffee, Energy Drinks - Recreational Drug Use Recreational Drug Use: Yes - Living Situation & Occupation Living situation: Reports: (), with Significant Other (Boyfriend), with Family (6 kids) 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 Denies: Fever, Chills, Diaphoresis HEENT: Reports: No Symptoms ED EXAM, GENERAL - Physical Exam Exam: See Below Exam Limited By: No Limitations General Appearance: Alert, No Apparent Distress Eye Exam: Bilateral Eye: Normal Inspection, PERRL Ears: Normal External Exam, Normal Canal, Hearing Grossly Normal, Normal TMs Nose: Normal Inspection, Normal Mucosa, No Blood Throat/Mouth: Normal Inspection, Normal Lips, Normal Teeth, Normal Gums, Normal Oropharynx, Normal Voice, No Airway Compromise Head: Atraumatic, Normocephalic Neck: Normal Inspection, Supple, Non-Tender, Full Range of Motion. No: Lymphadenopathy (L), Lymphadenopathy (R) Respiratory/Chest: Lungs Clear, Normal Breath Sounds Cardiovascular: Regular Rate, Rhythm, No Edema, No Murmur GI/Abdominal: Normal Bowel Sounds, Soft, Non-Tender Back Exam: Normal Inspection. No: CVA Tenderness (L), CVA Tenderness (R) #1 Interpretation EKG Date: 05/28/21 Rhythm: NSR Rate (Beats/Min): 74 [place]: Normal P-Wave: Present QRS: Other (Borderline low voltage precordial leads) ST-T: Normal QT: Normal Comparison: NA - No Prior EKG EKG Interpretation Comments: Abnormal EKG Course - Vital Signs Last Recorded V/S: Last Vital Signs Temp 35.8 C L 05/27/21 23:58 Pulse 80 05/27/21 23:58 Resp 18 05/27/21 23:58 BP 130/92 H 05/27/21 23:58 Pulse Ox 96 05/27/21 23:58 - Orders/Labs/Meds Orders: Active Orders 24 hr Category Date Time Status CULTURE URINE [MREF] Stat Lab 05/28/21 00:15 Received Sodium Chloride 0.9% [Normal Saline] 1,000 ml Med 05/28/21 03:00 Active IV ASDIRECTED Medication Orders Sodium Chloride (Normal Saline) 1,000 mls @ 150 mls/hr IV ASDIRECTED GUNJAN Last Admin: 05/28/21 03:00 Dose: 150 mls/hr Documented by: JOSÉ Labs: Laboratory Tests 05/28/21 05/28/21 05/28/21 Range/Units 00:15 00:15 00:15 WBC (3.98-10.04) K/mm3 RBC (3.98-5.22) M/mm3 Hgb (11.2-15.7) gm/dl Hct (34.1-44.9) % MCV (79.4-94.8) fl MCH (25.6-32.2) pg MCHC (32.2-35.5) g/dl RDW Std Deviation (36.4-46.3) fL Plt Count (182-369) K/mm3 MPV (9.4-12.3) fl Neut % (Auto) (34.0-71.1) % Lymph % (Auto) (19.3-51.7) % [place] % (Auto) (4.7-12.5) % Eos % (Auto) (0.7-5.8) Baso % (Auto) (0.1-1.2) % Neut # (Auto) (1.56-6.13) K/mm3 Lymph # (Auto) (1.18-3.74) K/mm3 [place] # (Auto) (0.24-0.36) K/mm3 Eos # (Auto) (0.04-0.36) K/mm3 Baso # (Auto) (0.01-0.08) K/mm3 Sodium (136-145) mEq/L Potassium (3.5-5.1) mEq/L Chloride (98-107) mEq/L Carbon Dioxide (21-32) mEq/L Anion Gap (5-15) BUN (7-18) mg/dL Creatinine (0.55-1.02) mg/dL Est Cr Clr Drug Dosing mL/min Estimated GFR (MDRD) (>60) mL/min BUN/Creatinine Ratio (14-18) Glucose (70-99) mg/dL Calcium (8.5-10.1) mg/dL Total Bilirubin (0.2-1.0) mg/dL AST (15-37) U/L ALT (14-59) U/L Alkaline Phosphatase (46-116) U/L Total Protein (6.4-8.2) g/dl Albumin (3.4-5.0) g/dl Globulin gm/dL Albumin/Globulin Ratio (1-2) Urine Color Light yellow (Yellow) Urine Appearance Slt cloudy H (Clear) Urine pH 7.0 (5.0-8.0) Ur Specific [place] 1.010 (1.005-1.030) Urine Protein Negative (Negative) Urine Glucose (UA) Negative (Negative) Urine Ketones Negative (Negative) Urine Occult Blood 2+ H (Negative) Urine Nitrite Negative (Negative) Urine Bilirubin Negative (Negative) Urine Urobilinogen 0.2 (0.2-1.0) Ur Leukocyte Esterase Trace H (Negative) Urine RBC 5-10 H (0-5) /hpf Urine WBC 0-5 (0-5) /hpf Ur Squamous Epith Cells 0-5 (0-5) /hpf Urine Bacteria Few (FEW) /hpf Urine Mucus Not seen (FEW) /hpf Urine HCG, Qual Negative (NEGATIVE) Urine Opiates Screen Presumptive positive H (EEFRZA=245) Ur Buprenorphine Scrn Negative (CUTOFF=10) Ur Oxycodone Screen Negative (YUC9UK=118) Urine Methadone Screen Negative (ARGRCP=678) Ur Propoxyphene Screen Negative (EVGYOU=775) Ur Barbiturates Screen Negative (TZIUYT=033) Ur Tricyclics Screen Negative (AJWSNT=807) Ur Phencyclidine Scrn Negative (CUTOFF=25) Ur Amphetamine Screen Negative (SKLWNX=048) U Methamphetamines Scrn Negative (BYEKSH=869) U Benzodiazepines Scrn Negative (ETPQGD=326) U Cocaine Metab Screen Negative (HOTJTS=284) U Marijuana (THC) Screen Negative (CUTOFF=50) Ethyl Alcohol (0.00) gm% 05/28/21 05/28/21 05/28/21 Range/Units 01:05 01:05 01:05 WBC 6.01 (3.98-10.04) K/mm3 RBC 3.28 L (3.98-5.22) M/mm3 Hgb 10.1 L D (11.2-15.7) gm/dl Hct 32.0 L (34.1-44.9) % MCV 97.6 H (79.4-94.8) fl MCH 30.8 (25.6-32.2) pg MCHC 31.6 L (32.2-35.5) g/dl RDW Std Deviation 43.9 (36.4-46.3) fL Plt Count 261 (182-369) K/mm3 MPV 9.6 (9.4-12.3) fl Neut % (Auto) 42.0 (34.0-71.1) % Lymph % (Auto) 45.9 (19.3-51.7) % [place] % (Auto) 9.7 (4.7-12.5) % Eos % (Auto) 1.7 (0.7-5.8) Baso % (Auto) 0.5 (0.1-1.2) % Neut # (Auto) 2.53 (1.56-6.13) K/mm3 Lymph # (Auto) 2.76 (1.18-3.74) K/mm3 [place] # (Auto) 0.58 H (0.24-0.36) K/mm3 Eos # (Auto) 0.10 (0.04-0.36) K/mm3 Baso # (Auto) 0.03 (0.01-0.08) K/mm3 Sodium 142 (136-145) mEq/L Potassium 3.2 L (3.5-5.1) mEq/L Chloride 107 (98-107) mEq/L Carbon Dioxide 29 (21-32) mEq/L Anion Gap 9.2 (5-15) BUN 15 (7-18) mg/dL Creatinine 0.7 (0.55-1.02) mg/dL Est Cr Clr Drug Dosing 108.44 mL/min Estimated GFR (MDRD) > 60 (>60) mL/min BUN/Creatinine Ratio 21.4 H (14-18) Glucose 80 (70-99) mg/dL Calcium 8.8 (8.5-10.1) mg/dL Total Bilirubin 0.4 (0.2-1.0) mg/dL AST 47 H (15-37) U/L ALT 69 H (14-59) U/L Alkaline Phosphatase 38 L (46-116) U/L Total Protein 6.7 (6.4-8.2) g/dl Albumin 3.4 (3.4-5.0) g/dl Globulin 3.3 gm/dL Albumin/Globulin Ratio 1.0 (1-2) Urine Color (Yellow) Urine Appearance (Clear) Urine pH (5.0-8.0) Ur Specific [place] (1.005-1.030) Urine Protein (Negative) Urine Glucose (UA) (Negative) Urine Ketones (Negative) Urine Occult Blood (Negative) Urine Nitrite (Negative) Urine Bilirubin (Negative) Urine Urobilinogen (0.2-1.0) Ur Leukocyte Esterase (Negative) Urine RBC (0-5) /hpf Urine WBC (0-5) /hpf Ur Squamous Epith Cells (0-5) /hpf Urine Bacteria (FEW) /hpf Urine Mucus (FEW) /hpf Urine HCG, Qual (NEGATIVE) Urine Opiates Screen (HOBGYZ=103) Ur Buprenorphine Scrn (CUTOFF=10) Ur Oxycodone Screen (KGM7CD=864) Urine Methadone Screen (TVURWP=803) Ur Propoxyphene Screen (XZTXAF=938) Ur Barbiturates Screen (HZCYYH=135) Ur Tricyclics Screen (DGPGEC=746) Ur Phencyclidine Scrn (CUTOFF=25) Ur Amphetamine Screen (ZMBSBD=332) U Methamphetamines Scrn (QBXAJK=502) U Benzodiazepines Scrn (PHBBUB=149) U Cocaine Metab Screen (XSCZHM=362) U Marijuana (THC) Screen (CUTOFF=50) Ethyl Alcohol 0.00 (0.00) gm% Meds: Medications Generic Name Dose Route Start Last Admin Trade Name Freq PRN Reason Stop Dose Admin Sodium Chloride 1,000 mls @ 150 mls/hr 05/28/21 03:00 05/28/21 03:00 Normal Saline IV 150 mls/hr ASDIRECTED GUNJAN Administration Discontinued Medications Generic Name Dose Route Start Last Admin Trade Name Freq PRN Reason Stop Dose Admin Hydrocodone Bitart/Acetaminophen 1 tab 05/28/21 02:25 05/28/21 03:00 Acetaminophen/Hydrocodone 325-5 Mg Tab PO 05/28/21 02:26 1 tab ONETIME ONE Administration Lactated Ringer's 1,000 mls @ 999 mls/hr 05/28/21 00:46 05/28/21 01:12 Ringers, Lactated IV 05/28/21 01:46 999 mls/hr .BOLUS ONE Administration Potassium Chloride 10 meq/ 100 mls @ 100 mls/hr 05/28/21 02:24 05/28/21 03:00 Premix IV 05/28/21 03:23 100 mls/hr ONETIME ONE Administration Potassium Chloride 10 meq 05/28/21 02:53 05/28/21 03:40 Potassium Chloride 10 Meq Tab.Er PO 05/28/21 02:54 10 meq ONETIME ONE Administration - Re-Assessments/Exams Free Text/Narrative Re-Assessment/Exam: 05/28/21 02:28 Potassium is a little low at 3.2 will give her a K rider. The patient is also having worsening shoulder pain she is a month post shoulder surgery we will give her [place] for this after the [place] is been down for a little bit we will try oral potassium to see how she tolerates this. Work-up thus far is unrevealing for something in her drink and explain her symptoms. 05/28/21 04:24 Patient is done well here in the emergency room work-up has been unrevealing. Her potassium is a little low however she was given 20 mEq of oral potassium and kept this down and was given a K rider as I was curious to how she was given a respond to the oral potassium with her history of a gastric sleeve. Departure - Departure Time of Disposition: 04:25 Disposition: Home, Self-Care 01 Clinical Impression: Hypokalemia, Anemia - Discharge Information Referrals: PCP,None [Primary Care Provider] - Forms: ED Department Discharge Additional Instructions: Return to the emergency room with any questions problems or worsening symptoms. Follow-up with your regular healthcare provider in 1 week to have your anemia, or decreased blood count, checked. Also have your potassium rechecked. [facility] [address] to be picked up tomorrow. This is the only pharmacy open tomorrow and they are open between noon and 4 take 1 tablet twice daily until all gone Sepsis Event Note (ED) - Evaluation Sepsis Screening Result: No Definite Risk - Focused Exam Vital Signs: Vital Signs Temp Pulse Resp BP Pulse Ox 05/27/21 23:58 35.8 C L 80 18 130/92 H 96 - My Orders Last 24 Hours: My Active Orders 05/28/21 00:15 CULTURE URINE [MREF] Stat 05/28/21 03:00 Sodium Chloride 0.9% [Normal Saline] 1,000 ml IV ASDIRECTED - Assessment/Plan Last 24 Hours: My Active Orders 05/28/21 00:15 CULTURE URINE [MREF] Stat 05/28/21 03:00 Sodium Chloride 0.9% [Normal Saline] 1,000 ml IV ASDIRECTED
[2021-05-28] MEDS ORDERED: Lactated Ringers 1,000 ML IV ONE (00:46)
[2021-05-28] MEDS ORDERED: Potassium Chloride 10 MEQ in Premix Bag 1 BAG IV ONE (02:24)
[2021-05-28] MEDS ORDERED: Acetaminophen/HYDROcodone 325-5 MG Tab PO ONE (02:25)
[2021-05-28] MEDS ORDERED: Potassium Chloride 10 MEQ Tab.ER PO ONE (02:53)
[2021-05-28] MEDS ORDERED: Sodium Chloride 0.9% 1,000 ML IV SCH (03:00)
[2021-05-28 06:09] VITALS: BP 104/70; PULSE 70
== END 2021-05-28 04:54 | disposition home or self-care (01) ==
LOC: JD.ED 23:43
DX: E87.6 Hypokalemia (principal); D64.9 Anemia, unspecified; K21.9 Gastro-esophageal reflux disease without esophagitis; Z72.0 Tobacco use; Z86.16 Personal history of COVID-19; Z88.8 Allergy status to other drugs, medicaments and biological substances; Z88.5 Allergy status to narcotic agent; Z88.1 Allergy status to other antibiotic agents; Z88.0 Allergy status to penicillin; Z88.2 Allergy status to sulfonamides
CPT/HCPCS: 36415; 80053; 80306; 80307; 81001; 81025; 85025; 87086; 93005; 96365; 99283; A9270; J3480; J7030; J7120

== ENCOUNTER 2022-01-09 15:50 | Emergency (ER) | payer OTHER ==
[2022-01-09 16:05] VITALS: BP 132/89; PULSE 114
[2022-01-09] MEDS ORDERED: HYDROmorphone 1 MG/ML Syringe IM ONE ×2 (16:20→16:56)
[2022-01-09] MEDS ORDERED: Ondansetron 4 MG Tab.DIS PO ONE ×2 (16:29→18:02)
[2022-01-09] MEDS ORDERED: Acetaminophen/HYDROcodone 325-5 MG Tab PO STA (17:49)
[2022-01-09 17:58] LABS: ESTIMATED GFR 85 mL/min (>60)
== END 2022-01-09 18:55 | disposition home or self-care (01) ==
LOC: JD.ED 15:50
DX: S82.141A Displaced bicondylar fracture of right tibia, initial encounter for closed fracture (principal); S83.91XA Sprain of unspecified site of right knee, initial encounter; K21.9 Gastro-esophageal reflux disease without esophagitis; F17.210 Nicotine dependence, cigarettes, uncomplicated; Z86.16 Personal history of COVID-19; Z90.49 Acquired absence of other specified parts of digestive tract; Z90.710 Acquired absence of both cervix and uterus; Z79.899 Other long term (current) drug therapy; Z88.1 Allergy status to other antibiotic agents; Z88.0 Allergy status to penicillin; Z88.6 Allergy status to analgesic agent; Z91.013 Allergy to seafood; Z88.2 Allergy status to sulfonamides; X50.1XXA Overexertion from prolonged static or awkward postures, initial encounter
CPT/HCPCS: 36415; 73564; 80053; 83735; 96372; 99283; A9270; J1170

== ENCOUNTER 2023-07-30 16:43 | Emergency (ER) | payer MEDICAID ==
[2023-07-30 17:08] VITALS: BP 136/95; PULSE 117
[2023-07-30] MEDS ORDERED: cefTRIAXone 2 GM in Sodium Chloride 0.9% 100 ML IV ONE (18:42)
[2023-07-30] MEDS ORDERED: Sodium Chloride 0.9% 10 ML Syringe FLUSH PRN (18:44)
[2023-07-30] MEDS ORDERED: Naloxone 0.4 MG/ML SDV IVPUSH PRN (18:50)
[2023-07-30] MEDS ORDERED: HYDROmorphone 0.5 MG/0.5 ML Syringe IVPUSH ONE (18:50)
[2023-07-30 19:27] LABS: BASOPHILS PERCENT AUTO 0.2 % (0.0-1.0); EOSINOPHILS PERCENT AUTO 0.1 % (0.0-6.0); HEMATOCRIT 32.3 % (37.0-47.0); HEMOGLOBIN 10.6 gm/dl (12.0-16.0); IMMATURE GRAN ABSOLUTE AUTO 0.06 K/mm3 (0.00-0.05); IMMATURE GRAN PERCENT AUTO 0.5 % (0.0-0.4); LYMPHOCYTES ABSOLUTE AUTO 3.5 K/mm3 (1.0-4.8); LYMPHOCYTES PERCENT AUTO 30.2 % (24.0-44.0); MEAN CORPUSCULAR HEMOGLOBIN 30.4 pg (28.0-32.0); MEAN CORPUSCULAR HGB CONC 32.8 g/dl (32.0-36.0); MEAN PLATELET VOLUME 8.8 fl (9.4-12.3); MONOCYTES ABSOLUTE AUTO 0.8 K/mm3 (0.0-0.8); MONOCYTES PERCENT AUTO 6.8 % (0.0-8.0); NEUTROPHILS ABSOLUTE AUTO 7.3 K/mm3 (1.8-7.7); NEUTROPHILS PERCENT AUTO 62.2 % (41.0-71.0); PLATELET COUNT,PLT 344 K/mm3 (150-400); RED BLOOD CELL COUNT 3.49 M/mm3 (4.10-5.30); WHITE BLOOD CELL COUNT,WBC 11.68 K/mm3 (3.9-11.3)
[2023-07-30 19:30] LABS: MEAN CORPUSCULAR VOLUME 92.6 fl (83.0-99.0)
[2023-07-30] MEDS ORDERED: Promethazine 25 MG/ML SDV IM ONE (19:41)
[2023-07-30 19:49] LABS: A/G RATIO 0.8 (1-2); ALANINE AMINOTRANSFERASE,ALT 18 U/L (14-59); ALBUMIN 3.3 g/dl (3.4-5.0); ALKALINE PHOSPHATASE 41 U/L (46-116); ANION GAP 11.6 (5-15); ASPARTATE AMNIOTRANSFERASE,AST 14 U/L (15-37); BILIRUBIN TOTAL 0.3 mg/dL (0.2-1.0); BLOOD UREA NITROGEN,BUN 18 mg/dL (7-18); BUN/CREATININE RATIO 22.5 (14-18); C-REACTIVE PROTEIN <0.2 mg/dL (<1.0); CALCIUM 9.4 mg/dL (8.5-10.1); CARBON DIOXIDE,CO2 31 mEq/L (21-32); CHLORIDE,CL 102 mEq/L (98-107); CREATININE 0.8 mg/dL (0.55-1.02); EST CRCL DRUG DOSING (CG) 92.72 mL/min; ESTIMATED GFR 97 mL/min (>60); GLUCOSE RANDOM 103 mg/dL (70-99); MAGNESIUM 2.1 mg/dL (1.8-2.4); POTASSIUM,K 3.6 mEq/L (3.5-5.1); PROTEIN TOTAL,TP 7.6 g/dl (6.4-8.2); SODIUM,NA 141 mEq/L (136-145)
== END 2023-07-30 21:16 | disposition home or self-care (01) ==
LOC: JD.ED 16:43
DX: N61.0 Mastitis without abscess (principal); J45.909 Unspecified asthma, uncomplicated; K21.9 Gastro-esophageal reflux disease without esophagitis; Z90.49 Acquired absence of other specified parts of digestive tract; Z90.710 Acquired absence of both cervix and uterus; Z79.899 Other long term (current) drug therapy; Z88.0 Allergy status to penicillin; Z88.8 Allergy status to other drugs, medicaments and biological substances; Z88.2 Allergy status to sulfonamides; Z88.5 Allergy status to narcotic agent; Z91.013 Allergy to seafood; Z88.1 Allergy status to other antibiotic agents; Z88.6 Allergy status to analgesic agent
CPT/HCPCS: 36415; 80053; 83735; 85025; 86140; 96365; 96372; 96375; 99283; J0696; J1170; J2550; J3490

== ENCOUNTER 2024-06-13 16:27 | Emergency (ER) | payer MEDICAID ==
[2024-06-13 17:20] LABS: APPEARANCE,URINE CLEAR (Clear); BILIRUBIN,URINE 1+ (Negative); COLOR,URINE YELLOW (Yellow); GLUCOSE,URINE NEGATIVE (Negative); KETONES,URINE TRACE (Negative); LEUKOCYTE ESTERASE,URINE NEGATIVE (Negative); NITRITE,URINE NEGATIVE (Negative); OCCULT BLOOD,URINE 3+ (Negative); PH,URINE 5.5 (5.0-8.0); PROTEIN,URINE TRACE (Negative)
[2024-06-13 17:24] LABS: BACTERIA,URINE FEW /hpf (FEW); EPITHELIAL CELLS,URINE 0-5 /hpf (0-5); HYALINE CASTS,URINE 0-5 /lpf (0-5); MUCUS,URINE MANY /hpf (FEW); RBC,URINE 50-75 /hpf (0-5); WBC,URINE 0-5 /hpf (0-5)
[2024-06-13 17:51] LABS: BASOPHILS ABSOLUTE AUTO 0.1 K/mm3 (0.0-0.2); EOSINOPHILS ABSOLUTE AUTO 0.1 K/mm3 (0.0-0.4); EOSINOPHILS PERCENT AUTO 1.3 % (0.0-6.0); HEMATOCRIT 34.6 % (37.0-47.0); IMMATURE GRAN ABSOLUTE AUTO 0.01 K/mm3 (0.00-0.05); IMMATURE GRAN PERCENT AUTO 0.2 % (0.0-0.4); LYMPHOCYTES ABSOLUTE AUTO 2.8 K/mm3 (1.0-4.8); LYMPHOCYTES PERCENT AUTO 44.2 % (24.0-44.0); MEAN CORPUSCULAR HEMOGLOBIN 29.7 pg (28.0-32.0); MEAN CORPUSCULAR HGB CONC 31.8 g/dl (32.0-36.0); MEAN CORPUSCULAR VOLUME 93.5 fl (83.0-99.0); MEAN PLATELET VOLUME 9.9 fl (9.4-12.3); MONOCYTES ABSOLUTE AUTO 0.4 K/mm3 (0.0-0.8); MONOCYTES PERCENT AUTO 6.7 % (0.0-8.0); NEUTROPHILS ABSOLUTE AUTO 2.9 K/mm3 (1.8-7.7); NEUTROPHILS PERCENT AUTO 46.6 % (41.0-71.0); PLATELET COUNT,PLT 286 K/mm3 (150-400); WHITE BLOOD CELL COUNT,WBC 6.27 K/mm3 (3.9-11.3)
[2024-06-13] MEDS: LORazepam 2 MG/ML SDV IV ONE (17:52)
[2024-06-13] MEDS: Sodium Chloride 0.9% 1,000 ML IV ONE (17:52)
[2024-06-13] MEDS: Sodium Chloride 0.9% 10 ML Syringe FLUSH ONE (17:55)
[2024-06-13 18:12] LABS: A/G RATIO 0.9 (1-2); ALBUMIN 3.3 g/dl (3.4-5.0); ANION GAP 11.6 (5-15); BILIRUBIN TOTAL 0.1 mg/dL (0.2-1.0); BUN/CREATININE RATIO 21.1 (14-18); CREATININE 0.9 mg/dL (0.55-1.02); EST CRCL DRUG DOSING (CG) 82.42 mL/min; POTASSIUM,K 3.6 mEq/L (3.5-5.1); PROTEIN TOTAL,TP 6.9 g/dl (6.4-8.2)
[2024-06-13] MEDS: Iopamidol 612 MG/ML 100 ML Bottle IVPUSH ONE (18:27)
[2024-06-13] MEDS: Sodium Chloride 0.9% 10 ML Syringe FLUSH PRN (18:27)
[2024-06-13 19:09] VITALS: BP 119/73; PULSE 72
[2024-06-13] MEDS: methylPREDNISolone Sodium Succinate 125 MG/2 ML SDV IVPUSH ONE (19:21)
== END 2024-06-13 19:52 | disposition home or self-care (01) ==
LOC: JD.ED 16:27
DX: R10.9 Unspecified abdominal pain (principal); M54.50 Low back pain, unspecified; Z88.0 Allergy status to penicillin; Z88.1 Allergy status to other antibiotic agents; Z88.2 Allergy status to sulfonamides; Z88.5 Allergy status to narcotic agent; Z88.8 Allergy status to other drugs, medicaments and biological substances; Z91.013 Allergy to seafood; Z79.899 Other long term (current) drug therapy; Z86.16 Personal history of COVID-19; Z87.891 Personal history of nicotine dependence; Z90.49 Acquired absence of other specified parts of digestive tract; Z90.710 Acquired absence of both cervix and uterus
CPT/HCPCS: 36415; 74177; 80053; 81001; 83690; 84703; 85025; 96374; 96375; 99284; J2060; J2919; J3490; J7030; Q9967; 99283

== ENCOUNTER 2024-07-01 12:56 | Emergency (ER) | payer MEDICAID ==
[2024-07-01] MEDS: Sodium Chloride 0.9% 1,000 ML IV ONE (14:50)
[2024-07-01] MEDS: Ketorolac 30 MG/ML SDV IVPUSH ONE (14:50)
[2024-07-01] MEDS: predniSONE 20 MG Tab PO ONE (16:48)
[2024-07-01 17:34] VITALS: BP 109/60; PULSE 74
== END 2024-07-01 17:23 | disposition home or self-care (01) ==
LOC: JD.ED 12:56
DX: R07.9 Chest pain, unspecified (principal); M54.50 Low back pain, unspecified; F17.210 Nicotine dependence, cigarettes, uncomplicated; Z86.16 Personal history of COVID-19; Z90.49 Acquired absence of other specified parts of digestive tract; Z90.710 Acquired absence of both cervix and uterus; Z79.899 Other long term (current) drug therapy; Z88.0 Allergy status to penicillin; Z88.2 Allergy status to sulfonamides; Z88.5 Allergy status to narcotic agent; Z88.8 Allergy status to other drugs, medicaments and biological substances; Z91.013 Allergy to seafood; Z88.1 Allergy status to other antibiotic agents
CPT/HCPCS: 36415; 71046; 72148; 84484; 85379; 93005; 96361; 96374; 99285; J1885; J7030; J7512